=== PATIENT | female | born 1950 | race Caucasian/White ===

== ENCOUNTER → 2016-04-04 | Outpatient (CLI) | payer MEDICARE, OTHER | LOC: LAB.O 09:47 | PROVIDERS: ATTEND Nurse Practitioner Acute Care | DX: R19.7 Diarrhea, unspecified (principal) ==

== ENCOUNTER → 2016-09-07 | Outpatient (CLI) | payer MEDICARE, OTHER | LOC: GMA 20:13 | PROVIDERS: ATTEND Nurse Practitioner Family | DX: N30.00 Acute cystitis without hematuria (principal) ==

== ENCOUNTER 2017-11-20 09:36 | Inpatient (IN) | payer MEDICARE, OTHER ==
--- NOTE | 2017-11-20 09:57 | HP ---
SUPERVISING PHYSICIAN: Yovani Garcias M.D. CHIEF COMPLAINT: Increasing shortness of breath. HISTORY OF PRESENT ILLNESS: Ms. Maxwell is a 67 year-old female patient of Dr. Thao. This past Sunday she went to the mobile clinic at with complaints of a cough and some shortness of breath with upper respiratory symptoms. She was given a steroid shot and antibiotic injection, and started on some Cefdinir. She initially had some response that was improvement, but today she was worse and went to [facility] and was seen by Isamar, the physician assistant track coach in the walk-in clinic, and was given another shot of steroids, Rocephin and started on a Medrol Dosepak. Her symptoms had significantly worsened, she was having a productive cough and was having low O2 saturations of 86% on room air. She does have a significant history of chronic tobacco abuse, smoking approximately a pack a day. Labs in the clinic showed s a leukocytosis of 12,500 . Her chest x-ray indicated possible pneumonia of bilateral lower lobes. Dr. Luevano requested the patient be directly admitted to the hospital given that she had failed to respond to any significant degree to outpatient treatment measures for acute upper respiratory symptoms with bronchitis. Given that she has a long history of smoking and was having shortness of breath, the patient is now admitted to the Medical/Surgical floor for ongoing treatment of chronic obstructive pulmonary disease exacerbation with concerns for developing community-acquired pneumonia bilaterally. She was admitted in stable condition. PAST MEDICAL HISTORY: 1. Hypertension. 2. Microscopic colitis. PAST SURGICAL HISTORY: 1. Tubal ligation. 2. Bilateral cataract removal. HOME MEDICATIONS: 1. Dicyclomine 10 mg b.i.d. 2. Colestipol 1 gram b.i.d. 3. Prinivil 5 mg at bedtime. ALLERGIES: TRAMADOL. FAMILY HISTORY: Significant for heart problems in both brothers, sisters and father. She has a sister with multiple sclerosis. Mother at 74 from complications from esophageal problems. There is also note of coronary artery disease, hypertension, hyperlipidemia and carotid artery stenosis. SOCIAL HISTORY: The patient lives in [place], [place]. 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 She is a current smoker of approximately a pack a day. She denies any significant alcohol consumption and does not use illicit drugs. REVIEW OF SYSTEMS: CONSTITUTIONAL: Negative for any chills or fatigue, fever or unintentional weight gain. HEENT: Denies any sore throat, ear aches, nasal congestion. RESPIRATORY: Positive for ongoing worsening dyspnea with productive cough having previously been on antibiotics for acute bronchitis. CARDIOVASCULAR: Negative for chest pains, palpitations, syncopal episodes. GASTROINTESTINAL: Denies any constipation, diarrhea, abdominal pains. EXTREMITIES: Denies any peripheral edema, arthralgias. NEUROLOGIC: Negative for ataxia, seizures, headaches. PHYSICAL EXAMINATION: VITAL SIGNS: Temperature on admission was 98.4, pulse 82, blood pressure 158/85 , satting 89% on room air with respirations 18 to 20. Admission weight 88.9 kg. GENERAL: The patient appears to be in no acute distress, well nourished, well hydrated. She is alert. HEENT: Tympanic membranes were clear bilaterally. Oropharynx was pink and moist without any notable lesions. NECK: Supple, non-tender with full range of motion. No jugular venous distention. CHEST: Lung sounds are notable for some rales more present on the right lower lobe, but no obvious wheezing. CARDIOVASCULAR: Regular rate and rhythm without appreciable murmurs, gallops, or rubs. ABDOMEN: Soft, non-tender. Positive bowel sounds. EXTREMITIES: No clubbing, cyanosis or edema. NEUROLOGIC: She is alert and oriented times three. LABORATORY: White count on admission was 12,100, hemoglobin 12.9, hematocrit 37.2, platelet count 256,000. Differential did show a left shift. Chemistries showed normal electrolytes with potassium 4.4 with BUN 16, creatinine 0.74, calcium 9.4, lactic acid 0.8, magnesium 2.1. Liver functions showed to be within normal limits. Urinalysis was pending at time of admission. MICROBIOLOGY: Sputum culture is pending. Blood culture is pending. RADIOLOGY: Chest x-ray on admission per radiology interpretation showed bilateral lower lobe airspace opacities which could represent atelectasis and/ or pneumonia. ASSESSMENT: 1. Acute exacerbation of chronic obstructive pulmonary disease with bronchitis having failed to respond to outpatient treatment plan now with concerns for developing right lower lobe pneumonia. 2. Leukocytosis secondary to #1. 3. History of hypertension. 4. Chronic tobacco abuse/nicotine addiction in a current smoker. 5. Obesity as noted by a body mass index of 38.3. PLAN: The patient is going to be directly admitted to the Medical/Surgical floor for ongoing treatment of community acquired pneumonia with the patient having failed to respond to both antibiotics including Cefdinir, azithromycin and multiple rounds of steroids in the outpatient setting. She will be started on aggressive pulmonary hygiene with chest percussive therapy. Will start her on Levaquin for antibiotic coverage and await sputum cultures to target antibiotic therapy as appropriate. She will be on DVT prophylaxis as per protocol. Will resume her home medications once those have been updated and verified. She will be on DuoNeb breathing treatments q.i.d. and p.r.n. Albuterol. Will plan to repeat labs in the morning as well as chest x-ray. Anticipate her length of stay to be at least 2 to 3 days. Until clinically stable and able to transition to p.o. medication, will continue to monitor and treat appropriately. #[id number] [facility]
[2017-11-20] MEDS ORDERED: ONDANSETRON INJ 4 MG/2 ML VIAL IV PRN (10:31)
[2017-11-20] MEDS ORDERED: ACETAMINOPHEN 325 MG TAB PO PRN (10:31)
[2017-11-20] MEDS ORDERED: ALBUTEROL SULFATE 2.5 MG/3 ML VIAL NEB PRN (10:31)
[2017-11-20] MEDS: levoFLOXacin 750MG IV 750 MG in PREMIX BAG 1 BAG IVPB SCH (11:15)
[2017-11-20] MEDS: DICYCLOMINE HCL 20 MG TAB PO SCH ×2 (11:16→20:32)
[2017-11-20] MEDS: IV SET AND CAP CHANGE INJ INJ SCH (11:16)
[2017-11-20] MEDS: IPRATROPIUM/ALBUTEROL 3 ML VIAL INH SCH ×3 (12:45→20:50)
--- NOTE | 2017-11-20 13:31 | RAD ---
EXAM DESCRIPTION: Chest,2 Views CLINICAL HISTORY: 67 years Female, Pneumonia COMPARISON: None available. TECHNIQUE: PA and lateral radiographs of the chest were obtained. FINDINGS: Trachea is midline.The cardiomediastinal silhouette is normal in size. The pulmonary vasculature is within normal limits. Bilateral lower lobe airspace opacities could represent atelectasis and/or pneumonia.No evidence of pleural effusions.No evidence of pneumothorax. IMPRESSION: Bilateral lower lobe airspace opacities could represent atelectasis and/or pneumonia. Electronically signed by: Jana Hubbard MD 11/20/2017 1:29 PM CDT
[2017-11-20] MEDS ORDERED: COLESTIPOL HCL 1 GM TAB PO ONE (19:54)
[2017-11-20] MEDS ORDERED: OMEPRAZOLE CAP 20 MG CAP ONE (19:54)
[2017-11-20] MEDS: LISINOPRIL 5 MG TAB PO SCH (20:32)
[2017-11-20] MEDS: ENOXAPARIN SODIUM 40 MG/0.4 ML SYG SUBCU SCH (20:34)
[2017-11-20] MEDS: COLESTIPOL HCL 1 GM TAB PO SCH (22:10)
[2017-11-20] MEDS: ACETAMINOPHEN W/COD #3 TAB 1 EA TAB PO PRN (23:14)
[2017-11-21] MEDS: OMEPRAZOLE CAP 20 MG CAP PO SCH (06:06)
--- NOTE | 2017-11-21 07:08 | RAD ---
EXAM DESCRIPTION: Chest,2 Views CLINICAL HISTORY:67 years Female, Pneumonia Comparison: November 20, 2017 FINDINGS: Minimal subsegmental atelectasis at the lung bases. No focal lung consolidation. No pleural effusion. No pneumothorax. Cardiac and mediastinal silhouette is unremarkable. No acute osseous abnormality. Soft tissues are unremarkable. IMPRESSION: Minimal subsegmental atelectasis at the lung bases. No focal lung consolidation. Electronically signed by: Sam Luque MD 11/21/2017 7:06 AM CDT
[2017-11-21] MEDS: ACETAMINOPHEN W/COD #3 TAB 1 EA TAB PO PRN ×2 (07:36→15:42)
[2017-11-21] MEDS: IPRATROPIUM/ALBUTEROL 3 ML VIAL INH SCH ×4 (08:20→20:26)
[2017-11-21] MEDS: SODIUM CHLORIDE 0.9% (FLUSH) 10 ML SYG IV PRN ×3 (08:46→18:02)
[2017-11-21] MEDS: methylPREDNISolone SODIUM SUC 40 MG/ML VIAL IV SCH ×3 (08:46→18:02)
[2017-11-21] MEDS: DICYCLOMINE HCL 20 MG TAB PO SCH ×2 (08:47→21:01)
[2017-11-21] MEDS: COLESTIPOL HCL 1 GM TAB PO SCH ×2 (10:11→21:53)
--- NOTE | 2017-11-21 10:13 | PN ---
SUPERVISING PHYSICIAN: Wicho Garcias MD DATE: 11/21/17 SUBJECTIVE: The patient states she is still having some coughing episodes. She did not sleep very well last night due to the intermittent coughing. She is not complaining of any fever or chills at this time. No pain. OBJECTIVE: VITAL SIGNS: Blood pressure 119/73. Heart rate 67. Respiratory rate 18. Temperature 98.2. Oxygen saturation 97%. GENERAL: Ms. Maxwell is a 67-year-old female in no active distress at this time. NEUROLOGIC: Alert and oriented. LUNGS: Diminished bases, bilateral wheezing on expiration, scattered rhonchi. CARDIOVASCULAR: Regular rate and rhythm. Normal S1, S2. ABDOMEN: Soft, obese. Positive bowel sounds. EXTREMITIES: Pulses 2+. Capillary refill is less than 3 seconds. LABORATORY: White count 11.9, hemoglobin 11.8, hematocrit 34.8, platelet count 253. Chemistries pretty much unremarkable. Chest x-ray consistent with some atelectasis. ASSESSMENT: 1. Acute exacerbation of chronic obstructive pulmonary disease. 2. Acute bronchitis contributing to #1. 3. Hypertension. 4. Continuous nicotine dependency. 5. Obesity. PLAN: At this point, I am going to place the patient on scheduled IV corticosteroids. We will continue current antibiotics and monitor cultures. I have increased her DuoNeb to q.4h. as opposed to just q.i.d. She still has her p.r.n. treatments to be given as well. We will continue to monitor her status and hopefully she will improve over the next couple of days. #[id number] [facility]
[2017-11-21] MEDS: levoFLOXacin 750MG IV 750 MG in PREMIX BAG 1 BAG IVPB SCH (11:03)
[2017-11-21] MEDS: TEMAZEPAM 15 MG CAP PO PRN (21:00)
[2017-11-21] MEDS: LISINOPRIL 5 MG TAB PO SCH (21:00)
[2017-11-21] MEDS: ENOXAPARIN SODIUM 40 MG/0.4 ML SYG SUBCU SCH (21:01)
[2017-11-22] MEDS: methylPREDNISolone SODIUM SUC 40 MG/ML VIAL IV SCH ×4 (00:07→18:05)
[2017-11-22] MEDS: OMEPRAZOLE CAP 20 MG CAP PO SCH (06:10)
--- NOTE | 2017-11-22 06:51 | RAD ---
EXAM DESCRIPTION: Chest,1 View CLINICAL HISTORY:67 years Female, copd Comparison: November 21, 2017 FINDINGS: Minimal subsegmental atelectasis at the lung bases. No focal lung consolidation. Cardiac silhouette within normal limits. No pleural effusion or pneumothorax. Electronically signed by: Sam Luque MD 11/22/2017 6:49 AM CDT
[2017-11-22] MEDS: ACETAMINOPHEN W/COD #3 TAB 1 EA TAB PO PRN (08:27)
[2017-11-22] MEDS: DICYCLOMINE HCL 20 MG TAB PO SCH ×2 (08:28→20:28)
[2017-11-22] MEDS: FLUCONAZOLE 100 MG TAB PO SCH (08:29)
[2017-11-22] MEDS: IPRATROPIUM/ALBUTEROL 3 ML VIAL INH SCH ×4 (08:47→19:48)
--- NOTE | 2017-11-22 09:27 | PN ---
SUPERVISING PHYSICIAN: Wicho Garcias MD DATE: 11/22/17 SUBJECTIVE: The patient states she is feeling better than she did yesterday. She is still coughing, but not to the degree that she was yesterday. She states it is nonproductive. She denies any fever or chills. OBJECTIVE: VITAL SIGNS: Blood pressure 127/81. Heart rate 102. Respiratory rate 18. Temperature 97.2. Oxygen saturation 94%. GENERAL: Ms. Maxwell is a 67-year-old female in no active distress currently. NEUROLOGIC: Alert and oriented. LUNGS: Diminished in the bases. She has a little bit of a wheeze to the right base, but all the other wheezing is improved. There is scattered rhonchi. CARDIOVASCULAR: Regular rate and rhythm. Normal S1, S2. ABDOMEN: Soft. Positive bowel sounds. No tenderness to palpation. EXTREMITIES: Pulses 2+. Capillary refill is less than 3 seconds. LABORATORY: White count 12.7, hemoglobin 12.3, hematocrit 36.6, platelet count 290. Chemistries unremarkable. Chest x-ray with no evidence of consolidation. ASSESSMENT: 1. Acute exacerbation of chronic obstructive pulmonary disease. 2. Acute bronchitis contributing to #1. 3. Hypertension. 4. Continuous nicotine dependency. 5. Obesity. PLAN: At this time, am going to reduce her IV corticosteroids. Her wheeze is much improved and clinically she is improved as well. All other treatment will stay the same. I will recheck her labs tomorrow. Hopefully, she will be able to be discharged in the next 24 to 48 hours. Also, she needs to ambulate the steward today to see how she does. #[id number] [facility]
[2017-11-22] MEDS: COLESTIPOL HCL 1 GM TAB PO SCH ×2 (10:01→21:43)
[2017-11-22] MEDS: levoFLOXacin 750MG IV 750 MG in PREMIX BAG 1 BAG IVPB SCH (10:48)
[2017-11-22] MEDS: NICOTINE PATCH 14 MG TD SCH (16:01)
[2017-11-22] MEDS: ENOXAPARIN SODIUM 40 MG/0.4 ML SYG SUBCU SCH (20:28)
[2017-11-22] MEDS: LISINOPRIL 5 MG TAB PO SCH (20:28)
[2017-11-22] MEDS: TEMAZEPAM 15 MG CAP PO PRN (21:56)
[2017-11-23] MEDS: SODIUM CHLORIDE 0.9% (FLUSH) 10 ML SYG IV PRN ×3 (00:01→10:45)
[2017-11-23] MEDS: methylPREDNISolone SODIUM SUC 40 MG/ML VIAL IV SCH ×4 (06:11→17:49)
[2017-11-23] MEDS: OMEPRAZOLE CAP 20 MG CAP PO SCH (06:11)
--- NOTE | 2017-11-23 06:32 | RAD ---
EXAM DESCRIPTION: Chest,1 View CLINICAL HISTORY:67 years Female, copd Comparison: November 22, 2017 FINDINGS: Improved aeration of the lung bases. Aortic calcifications. No focal lung consolidation. No pleural effusion. No pneumothorax. Cardiac and mediastinal silhouette is unremarkable. No acute osseous abnormality. Soft tissues are unremarkable. IMPRESSION: No acute findings. No focal lung consolidation. Electronically signed by: Sam Luque MD 11/23/2017 6:30 AM CDT
[2017-11-23] MEDS: IPRATROPIUM/ALBUTEROL 3 ML VIAL INH SCH ×4 (08:23→20:15)
[2017-11-23] MEDS: NICOTINE PATCH 14 MG TD SCH (09:13)
[2017-11-23] MEDS: DICYCLOMINE HCL 20 MG TAB PO SCH ×2 (09:13→21:08)
[2017-11-23] MEDS: FLUCONAZOLE 100 MG TAB PO SCH (09:13)
[2017-11-23] MEDS: levoFLOXacin 750MG IV 750 MG in PREMIX BAG 1 BAG IVPB SCH (10:45)
[2017-11-23] MEDS: COLESTIPOL HCL 1 GM TAB PO SCH ×2 (10:45→22:00)
[2017-11-23] MEDS: BUDESONIDE NEBS 0.5 MG/2 ML VIAL NEB SCH ×2 (11:51→20:15)
[2017-11-23] MEDS: guaiFENesin ER TAB 600 MG TAB PO SCH ×2 (11:59→21:07)
[2017-11-23] MEDS: PROMETHAZINE W/CODEINE SYR 5 ML UD PO PRN ×2 (15:24→21:07)
--- NOTE | 2017-11-23 17:22 | PN ---
DATE: 11/23/17 SUPERVISING PHYSICIAN: Yovani Garcias M.D. SUBJECTIVE: The patient was titrated last night down on her steroids. This morning she says she feels much worse than she did yesterday with increasing dyspnea with any exertional effort. She notes that she is starting to have a significant amount of coughing but it is yet to be productive. She denies any fever or chills, diarrhea or abdominal pains. OBJECTIVE: VITAL SIGNS: T max temperature 97.5, pulse 107, blood pressure 114/ 70, respirations 20, satting 92% on room air. Weight is 88.8 kg. GENERAL: She is resting comfortably. Appears to be in no acute distress. CHEST: Lung sounds are diminished towards the bases with no obvious rhonchi. There is some slight wheezing heard in the right base compared to the right, but no rales or rhonchi again. HEART: Regular rate and rhythm without appreciable murmurs, gallops, or rubs. ABDOMEN: Soft, non-tender. Positive bowel sounds. EXTREMITIES: Without any clubbing, cyanosis or edema. NEUROLOGIC: She was alert and oriented times three. LABORATORY: White count is up today at 19,200 with hemoglobin 12.1, hematocrit 36.2, platelet count 296,000. Differential does show a left shift. Electrolytes are within normal limits. BUN is 20, creatinine 0.7, calcium 9.2. MICROBIOLOGY: Sputum culture is pending. Blood cultures remain negative after 3 days. RADIOLOGY: Chest x-ray per radiology interpretation of single view chest shows no acute findings. No focal lung consolidations. ASSESSMENT: 1. Acute exacerbation of chronic obstructive pulmonary disease having failed to respond to outpatient treatment plan showing a slight deterioration today after attempting titrating IV corticosteroids with continued remote concern for right lower lobe pneumonia. 2. Acute on chronic bronchitis contributing to #1 requiring aggressive corticosteroid administration and aggressive pulmonary hygiene. 3. Hypertension, stable. 4. Continuous nicotine dependency on nicotine patch. 5. Obesity, chronic. PLAN: Given that she had declined clinically with decreasing her IV corticosteroids over the last 12 hours, I will go ahead and increase those back to 40 mg every 12 hours for an additional 3 doses. Will continue with aggressive pulmonary hygiene and await final culture results to further target antibiotic therapy. Will continue to with current antibiotic coverage at this point with Levaquin. Will hopefully be able to discharge tomorrow, again after titration of IV to p.o. steroids with anticipation of discharging home. She is encouraged to ambulate in the hallway as she can tolerate. Until clinically able to transition to p.o. medication and outpatient management, will continue to monitor and treat appropriately. #[id number] [facility]
[2017-11-23] MEDS: IV SET AND CAP CHANGE INJ INJ SCH (17:49)
[2017-11-23] MEDS: ENOXAPARIN SODIUM 40 MG/0.4 ML SYG SUBCU SCH (21:07)
[2017-11-23] MEDS: LISINOPRIL 5 MG TAB PO SCH (21:07)
[2017-11-23] MEDS: TEMAZEPAM 15 MG CAP PO PRN (22:00)
[2017-11-24] MEDS: methylPREDNISolone SODIUM SUC 40 MG/ML VIAL IV SCH ×2 (00:08→06:06)
[2017-11-24] MEDS: SODIUM CHLORIDE 0.9% (FLUSH) 10 ML SYG IV PRN ×2 (00:08→06:06)
[2017-11-24] MEDS: OMEPRAZOLE CAP 20 MG CAP PO SCH (06:06)
[2017-11-24] MEDS: PROMETHAZINE W/CODEINE SYR 5 ML UD PO PRN ×4 (06:10→22:58)
[2017-11-24] MEDS: BUDESONIDE NEBS 0.5 MG/2 ML VIAL NEB SCH ×3 (08:35→18:19)
[2017-11-24] MEDS: IPRATROPIUM/ALBUTEROL 3 ML VIAL INH SCH ×4 (08:35→21:30)
[2017-11-24] MEDS: NICOTINE PATCH 14 MG TD SCH (09:03)
[2017-11-24] MEDS: FLUCONAZOLE 100 MG TAB PO SCH (09:03)
[2017-11-24] MEDS: guaiFENesin ER TAB 600 MG TAB PO SCH ×2 (09:03→21:02)
[2017-11-24] MEDS: DICYCLOMINE HCL 20 MG TAB PO SCH ×2 (09:03→21:02)
[2017-11-24] MEDS: SODIUM CHLORIDE 0.9% (FLUSH) 10 ML SYG IV SCH ×2 (09:18→21:03)
[2017-11-24] MEDS: BIFIDOBACTERIUM INFANTIS 4 MG CAP PO SCH (09:56)
[2017-11-24] MEDS: COLESTIPOL HCL 1 GM TAB PO SCH ×2 (09:57→22:00)
[2017-11-24] MEDS: NICOTINE PATCH 21 MG TD SCH (10:14)
[2017-11-24] MEDS: levoFLOXacin 750MG IV 750 MG in PREMIX BAG 1 BAG IVPB SCH (11:18)
[2017-11-24] MEDS ORDERED: BUDESONIDE NEBS 0.5 MG/2 ML VIAL NEB SCH (12:00)
--- NOTE | 2017-11-24 12:16 | PN ---
DATE: 11/24/17 SUPERVISING PHYSICIAN: Yovani Garcias M.D. SUBJECTIVE: The patient this morning says she feels a little bit better than yesterday, but continues to have a significant amount of coughing that is productive and some dyspnea with exertional efforts. She has been again on corticosteroids by IV for the last 12 hours and is transitioned to p.o. medication today. She did respond fairly well to Pulmicort. She denies any fevers, chills, diarrhea or abdominal pains. OBJECTIVE: VITAL SIGNS: T max 97.8, pulse 95, blood pressure 139/87, respirations 15, satting 93% on room air at rest. Weight is 88.6 kg. GENERAL: The patient appears to be without any acute distress. Alert. CHEST: Aeration is much better today, although still continues to be diminished bilaterally. No obvious wheezing is noted. HEART: Regular rate and rhythm. ABDOMEN: Obese but soft, non-tender. Positive bowel sounds. EXTREMITIES: Without any clubbing , cyanosis or edema. NEUROLOGIC: She is alert and oriented times three. LABORATORY: White count is persistently elevated at 19,600. Stable hemoglobin at 12 and hematocrit 35.6 with platelet count 289,000. Differential does continue to show a left shift. Chemistries today show normal electrolytes. Potassium 4.4, BUN 27, creatinine 0.76, calcium 8.8. MICROBIOLOGY: Preliminary sputum culture showed no growth at 12 hours. Preliminary blood cultures remain negative at 4 days. ASSESSMENT: 1. Acute exacerbation of chronic obstructive pulmonary disease failing to respond to outpatient treatment plan with slow response to inpatient treatment and requiring more aggressive IV corticosteroid treatments and aggressive pulmonary hygiene as well as inhaled steroids. 2. Acute on chronic bronchitis secondary to chronic tobacco abuse contributing to #1 requiring ongoing aggressive management. 3. Hypertension, stable. 4. Chronic nicotine dependency on nicotine patch. 5. Obesity. PLAN: She did respond fairly decently to Pulmicort and reinitiation of IV corticosteroids yesterday. She has had 2 doses of Pulmicort as well as 3 doses of Solu-Medrol at 40 mg. Given that she has responded well but continues to show significant exacerbation, I am going to decrease he Pulmicort timing to every 6 hours from every 12 hours as well as start her on p.o. prednisone this afternoon with anticipation of hopefully being able to discharge tomorrow. She is encouraged to ambulate at least 4 times today. Will continue aggressive pulmonary hygiene with chest percussive therapy and await final culture results to further target antibiotic therapy as needed. Until showing clinical stability and able to transition to p.o. medication, will continue to monitor and treat appropriately. #[id number] [facility]
[2017-11-24] MEDS ORDERED: predniSONE 20 MG TAB PO ONE (18:00)
[2017-11-24] MEDS: ENOXAPARIN SODIUM 40 MG/0.4 ML SYG SUBCU SCH (21:02)
[2017-11-24] MEDS: LISINOPRIL 5 MG TAB PO SCH (21:02)
[2017-11-24] MEDS: TEMAZEPAM 15 MG CAP PO PRN (22:58)
[2017-11-25] MEDS: BUDESONIDE NEBS 0.5 MG/2 ML VIAL NEB SCH ×2 (01:45→07:00)
[2017-11-25] MEDS: PROMETHAZINE W/CODEINE SYR 5 ML UD PO PRN ×2 (03:08→07:44)
[2017-11-25] MEDS: OMEPRAZOLE CAP 20 MG CAP PO SCH (06:45)
[2017-11-25] MEDS ORDERED: predniSONE 20 MG TAB ONE (06:53)
[2017-11-25] MEDS: IPRATROPIUM/ALBUTEROL 3 ML VIAL INH SCH (08:05)
[2017-11-25] MEDS: SODIUM CHLORIDE 0.9% (FLUSH) 10 ML SYG IV SCH (08:39)
[2017-11-25] MEDS: NICOTINE PATCH 21 MG TD SCH (08:40)
[2017-11-25] MEDS: BIFIDOBACTERIUM INFANTIS 4 MG CAP PO SCH (08:40)
[2017-11-25] MEDS: DICYCLOMINE HCL 20 MG TAB PO SCH (08:40)
[2017-11-25] MEDS: guaiFENesin ER TAB 600 MG TAB PO SCH (08:40)
[2017-11-25] MEDS: FLUCONAZOLE 100 MG TAB PO SCH (08:40)
[2017-11-25] MEDS ORDERED: predniSONE 20 MG TAB PO SCH (09:00)
[2017-11-25] MEDS: COLESTIPOL HCL 1 GM TAB PO SCH (10:09)
[2017-11-25 10:25] VITALS: BP 147/85; TEMP 98.5; O2SAT 95
--- NOTE | 2017-11-25 10:44 | RAD ---
EXAM DESCRIPTION: Chest,2 Views CLINICAL HISTORY: pmeumonis COMPARISON: 11/23/2017 FINDINGS: Two views of the chest are submitted. Cardiac silhouette appears normal. No focal parenchymal or pleural disease. No acute bony abnormality. There is no significant pulmonary vascular engorgement. IMPRESSION: No evidence of acute cardiopulmonary disease. Electronically signed by: Aries Hameed 11/25/2017 10:42 AM CDT
[2017-11-25] MEDS ORDERED: levoFLOXacin 500 MG TAB PO ONE (10:46)
--- NOTE | 2017-12-03 10:21 | DS ---
SUPERVISING PHYSICIAN: Wicho Garcias MD ADMISSION DIAGNOSIS: 1. Acute exacerbation of chronic obstructive pulmonary disease with bronchitis having failed to respond to outpatient treatment plan with concerns for developing right lower lobe pneumonia. 2. Leukocytosis secondary to #1. 3. History of hypertension. 4. Chronic tobacco abuse/nicotine addiction in a current smoker. 5. Obesity as noted by a body mass index of 38.3. DISCHARGE DIAGNOSIS: 1. Acute exacerbation of chronic obstructive pulmonary disease initially failing to respond to outpatient treatment measures, requiring inpatient treatment with more aggressive IV corticosteroid treatments and aggressive pulmonary hygiene as well as inhaled steroids, showing slow improvement, but clinically stable on discharge. 2. Acute on chronic bronchitis secondary to chronic tobacco abuse contributing to #1 requiring ongoing aggressive management. 3. Hypertension, stable. 4. Chronic nicotine dependency on nicotine patch. 5. Obesity. REASON FOR HOSPITALIZATION: Ms. Maxwell is a 67-year-old female patient of Dr. Luevano'betzy. The Sunday prior to admission on 11/20/17, she went to the mobile clinic at [facility] with complaints of a cough and some shortness of breath with upper respiratory symptoms. She was given a steroid shot and antibiotic injection, and started on oral antibiotics with cefdinir. She initially had good response, but on the date of admission, she was significant;y worse and went to [facility] and was seen by Isamar , the physician bankruptcy legal assistant in the walk-in clinic. At that time, she was given another shot of steroids, Rocephin and started on a Medrol Dosepak. Her symptoms had significantly worsened, she was having a productive cough and was having low O2 saturations of 86% on room air. She does have a significant history of chronic tobacco abuse, smoking approximately one pack a day. Labs in the clinic showed s a leukocytosis of 12,500 . Her chest x-ray indicated possible pneumonia of bilateral lower lobes. Dr. Luevano requested the patient be directly admitted to the hospital given that she had failed to respond to any significant degree to outpatient treatment measures for acute upper respiratory symptoms with bronchitis. She was admitted to the Medical/Surgical floor for ongoing treatment of chronic obstructive pulmonary disease exacerbation with concerns for developing community-acquired pneumonia. She was admitted in stable condition. LABORATORY: White count on admission was 12,100. At discharge, it was 21,400 with 4% bands, however, she was on extremely high dose steroids, but was clinically improving. Her hemoglobin and hematocrit were stable and at discharge were 11.7 and 35.3. Platelet count was 294,000. Differential did show a left shift at discharge, but she had been placed on a fairly high dose of steroids. Chemistries no admission showed normal electrolytes with BUN 12, creatinine 0.74. Her electrolytes remained within normal limits. BUN was slightly elevated at discharge, creatinine 0.76. Calcium normal at 8.8, magnesium low at 2.1. Lactic acid on admission was 0.8. Urinalysis showed 250 glucose, trace leukocyte esterase. Microscopic revealed 0 to 1 RBCs, 1 to 3 WBCs, 10 to 20 epithelials, 1+ bacteria, moderate mucus and 2+ budding yeast. MICROBIOLOGY: Blood cultures remain negative after 5 days. Final report on the sputum showed rare mixed normal respiratory mario. There was just a few yeast. RADIOLOGY: Chest x-ray on admission showed bilateral lower airspace opacities which could represent atelectasis and/or pneumonia. She had multiple x-rays throughout the admission and on the morning of discharge on 11/25/17, last x-ray , two-view chest per radiologic interpretation showed no evidence of acute cardiopulmonary disease. HOSPITAL COURSE: Ms. Maxwell was admitted on 11/20/17 for exacerbation of chronic obstructive pulmonary disease with concerns for developing pneumonia having failed to respond to outpatient treatment measures. She was started on antibiotics and the next day she was having significant amount of wheezing and started on steroids. She was started on a fairly high dose and tapered down to p.o. and then had a recurrence and setback of her symptoms worsening and had to be restarted on corticosteroids by IV. She received fairly high dose of steroids for several days and showed dramatic improvement although her white count was showing elevation, she was afebrile with x-ray without any signs of pneumonia. It was felt she had clinically improved well enough to continue with outpatient management. DISCHARGE ASSESSMENT: VITAL SIGNS: Temperature 98.5. Pulse 82. Blood pressure 147/85. Respiratory rate 16. Saturation 95% on room air. GENERAL: The patient was alert, in no distress. CHEST: Lungs sounds fairly clear throughout compared to admission. No wheezing was noted. Breath sounds remained diminished towards the bases, but no rhonchi or rales were present. HEART: Regular rate and rhythm. ABDOMEN: Obese, but soft. Positive bowel sounds. EXTREMITIES: No cyanosis, clubbing or edema. NEUROLOGIC: Alert and oriented times 3. PLAN: Ms. Maxwell was discharged on 11/25/17 with instructions to followup with her primary care provider in the office with Dr. Luevano the early part of next week after discharge. She was told to resume her home medications. She was encouraged to stop smoking and told to return to the hospital should she have any concerning symptoms or worsening of her condition. Diet at discharge was regular diet as tolerated. Activity to increase as tolerated. MEDICATIONS AT DISCHARGE: 1. Proventil nebulizers 2.5 mg q.4h. as needed, #30. 2. Align 4 mg daily. 3. Diflucan 150 mg daily, #2. 4. Mucinex 1200 mg twice daily. 5. Levaquin 750 mg daily, #4. 6. Nicotine patch one transdermal each day, #30. 7. Prednisone taper dose, #30, 10 mg tablets, 40 mg daily for 3 days, 30 mg for 3 days, 20 mg for 3 days and the 10 mg until gone. All other medications prior to admission were resumed. Condition at discharge was stable and improved. #[id number] [facility]
== END 2017-11-25 11:47 | disposition home or self-care (01) | DRG 190 ==
LOC: MS 09:36
PROVIDERS: ADMIT Nurse Practitioner Family; ATTEND Nurse Practitioner Family
DX: J44.1 Chronic obstructive pulmonary disease with (acute) exacerbation (principal); J18.9 Pneumonia, unspecified organism; F17.210 Nicotine dependence, cigarettes, uncomplicated; J44.0 Chronic obstructive pulmonary disease with (acute) lower respiratory infection; I10 Essential (primary) hypertension; Z88.5 Allergy status to narcotic agent; J20.9 Acute bronchitis, unspecified; E66.9 Obesity, unspecified; Z68.38 Body mass index [BMI] 38.0-38.9, adult

== ENCOUNTER 2017-12-18 11:23 | Inpatient (IN) | payer MEDICARE, OTHER ==
--- NOTE | 2017-12-18 11:24 | HP ---
SUPERVISING PHYSICIAN: Maynor Wade M.D. CHIEF COMPLAINT: Worsening shortness of breath. HISTORY OF PRESENT ILLNESS: Ms. Maxwell is a 67 year-old female with a longstanding history of chronic obstructive pulmonary disease. She had been in the hospital for exacerbation of chronic obstructive pulmonary disease on and discharged on 11/25/17, and had recovered well and was seen this past Sunday for again productive cough, increasing shortness of breath, chest congestion. At that time she was given a Z-Ze, cough medicine and steroid shot. She then reported back to the clinic for a 3 day followup on the but noticed that she was once again having increase in shortness of breath and was utilizing her inhaler at least every 1 to 2 hours. At that time, she was offered hospitalization for exacerbation of chronic obstructive pulmonary disease and refused, and had an echocardiogram done. This morning, she called Dr. Luevano and noted that she was now using her inhaler almost every hour and was significantly short of breath. Dr. Luevano requested the patient now be directly admitted for once again exacerbation of chronic obstructive pulmonary disease having failed to respond to outpatient management. She was directly admitted in stable condition. PAST MEDICAL HISTORY: 1. Chronic obstructive pulmonary disease with a recent exacerbation and hospitalizations within the last month. 2. Hypertension. 3. Microscopic colitis followed by Dr. Gray. 4. Past history of tobacco dependency having stopped smoking within the last 3 months. PAST SURGICAL HISTORY: 1. Tubal ligation. 2. Bilateral cataract removal. HOME MEDICATIONS: 1. Guaifenesin 1200 mg b.i.d. 2. Prednisone tapering dose. 3. Nicotine 21 mg patch daily. 4. Lisinopril 5 mg at bedtime. 5. Dicyclomine 10 mg twice daily. 6. Colestipol 1 gram twice daily. 7. Albuterol nebulizers 2.5 mg every 4 hours as needed. 8. Tylenol #3 one every 6 hours as needed for pain. 9. Align 4 mg daily. ALLERGIES: TRAMADOL. FAMILY HISTORY: Significant for heart problems in both brothers, sisters and father. She has had a sister with multiple sclerosis. Mother at 74 due to complications from esophageal problems. There is also note of some coronary artery disease, hypertension, hyperlipidemia and carotid artery stenosis. SOCIAL HISTORY: The patient lives in [place], [place]. She manages [employer]. She is a previous smoker having quit now in the last 2 months, previously smoking up to a pack a day. She denies any significant alcohol consumption and does not use illicit drugs. REVIEW OF SYSTEMS: CONSTITUTIONAL: Denies any fevers, chills, fatigue or unintentional weight loss. HEENT: Denies any sore throat, ear aches, nasal congestion. RESPIRATORY: As noted in History of Present Illness, worsening dyspnea with a cough that is nonproductive currently and had been previously on antibiotics within the last 30 days for acute bronchitis and COPD exacerbation as well as steroids. CARDIOVASCULAR: Denies any chest pains, palpitations, syncopal episodes. GASTROINTESTINAL: Denies any constipation, diarrhea, abdominal pains. EXTREMITIES: Denies any peripheral edema, arthralgias. NEUROLOGIC: Negative for any ataxia, seizures, headaches. PHYSICAL EXAMINATION: VITAL SIGNS: Temperature 97.8, pulse 97, blood pressure 149/89, respirations 18 , satting on room air at 95% at rest. Admission weight was 90.0 kg compared to admission on 11/20/17 at 88.9 kg. GENERAL: On admission to the Medical/Surgical floor, the patient is in some obvious mild distress with some severe shortness of breath from just mild ambulation. She does appear well hydrated, well nourished and she is alert. HEENT: Tympanic membranes are clear bilaterally. Oropharynx was pink and moist without any lesions. NECK: Supple, non-tender with full range of motion. No jugular venous distention. CHEST: Lung sounds are significantly decreased throughout with some mild inspiratory and expiratory wheezing with extended expiratory effort. CARDIOVASCULAR: Regular rate and rhythm without appreciable murmurs, gallops, or rubs. ABDOMEN: Soft, non-tender. Positive bowel sounds. EXTREMITIES: Without any clubbing, cyanosis or edema. NEUROLOGIC: She is alert and oriented times three. LABORATORY: White count 11,500, hemoglobin 12.9, hematocrit 38.2, platelet count 245,000. Differential does show a left shift. Coagulation studies show normal PT, PTT and D-dimer. Chemistries showed normal electrolytes, potassium 4.2, BUN 15, creatinine 0.7, lactic acid 1.3, magnesium 2.1. Liver functions are all within normal limits. BNP was 44. Urinalysis is pending. MICROBIOLOGY: Blood cultures are pending. Sputum culture is pending. RADIOLOGY: Chest x-ray 2 view per radiology interpretation showed no acute abnormalities in the chest. ASSESSMENT: 1. Acute exacerbation of chronic obstructive pulmonary disease with reactive airway disease and bronchitis having failed to respond to outpatient treatment management with concerns for possibly developing community acquired pneumonia requiring more aggressive antibiotic therapy and bronchial hygiene, initiation of parenteral corticosteroids. 2. Mild leukocytosis secondary to #1. 3. History of hypertension. 4. Chronic tobacco abuse plus nicotine addiction in a past smoker who recently quit smoking within the last 90 days. 5. Hypertension. 6. Chronic microscopic colitis followed by Dr. Gray. PLAN: The patient is going to be directly admitted to the Medical/Surgical floor for ongoing treatment of exacerbation of chronic obstructive pulmonary disease and failed to respond to outpatient treatment measures with concerns for community acquired developing pneumonia. She will be initiated on aggressive bronchial hygiene with IV corticosteroids, q.i.d. DuoNeb treatments. Will draw blood cultures and sputum. She will be started on steroids initially 125 mg to be followed-up by 60 mg every 6 hours and Solu-Medrol. Will plan to reevaluate in the morning with labs and chest x-ray until the patient is showing clinical improvement to discharge to outpatient management. Will continue to follow and treat as needed. #[id number] [facility]
[2017-12-18] MEDS ORDERED: ACETAMINOPHEN 325 MG TAB PO PRN (11:27)
[2017-12-18] MEDS ORDERED: ALBUTEROL SULFATE 2.5 MG/3 ML VIAL NEB PRN (11:27)
[2017-12-18] MEDS ORDERED: methylPREDNISolone SODIUM SUC 125 MG/2 ML VIAL IV ONE (11:30)
--- NOTE | 2017-12-18 11:59 | RAD ---
Procedure: XR CHEST 2 VIEWS Exam Date: 12/18/2017 Ordering Provider: Vasile Lizarraga Clinical Indication: COPD exacerbation Comparison: 11/25/2017 Findings: Cardiomediastinal silhouette is within normal limits. Aortic calcification. No focal lung consolidation. No pleural effusion. No pneumothorax. No acute osseous abnormality. Impression: 1. No acute abnormalities in the chest. Electronically signed by: Josesito Cortés MD 12/18/2017 11:58 AM CDT
[2017-12-18] MEDS: IV SET AND CAP CHANGE INJ INJ SCH (12:28)
[2017-12-18] MEDS ORDERED: ACETAMINOPHEN W/COD #3 TAB 1 EA TAB PO PRN (12:55)
[2017-12-18] MEDS: IPRATROPIUM/ALBUTEROL 3 ML VIAL INH SCH ×3 (13:15→20:05)
[2017-12-18] MEDS: NICOTINE PATCH 21 MG TD SCH (13:50)
[2017-12-18] MEDS: BIFIDOBACTERIUM INFANTIS 4 MG CAP PO SCH (13:51)
[2017-12-18] MEDS: COLESTIPOL HCL 1 GM TAB PO SCH ×2 (13:52→20:44)
[2017-12-18] MEDS: DICYCLOMINE HCL 20 MG TAB PO SCH ×2 (13:52→20:44)
[2017-12-18] MEDS: guaiFENesin ER TAB 600 MG TAB PO SCH ×2 (13:52→20:44)
[2017-12-18] MEDS ORDERED: AZITHROMYCIN IV 500 MG VIAL IVPB ONE (14:27)
[2017-12-18] MEDS ORDERED: SODIUM CHL 0.9% 50ML MIN-BAG+ 50 ML IVPB ONE (14:27)
[2017-12-18] MEDS ORDERED: cefTRIAXone SODIUM 1 GM VIAL ONE (14:27)
[2017-12-18] MEDS ORDERED: SODIUM CHLORIDE 0.9% 250ML 250 ML ONE (14:27)
[2017-12-18] MEDS: cefTRIAXone SODIUM 1 GM in SODIUM CHL 0.9% 50ML MIN-BAG+ 50 ML IVPB SCH (14:30)
[2017-12-18] MEDS: AZITHROMYCIN IV 500 MG in SODIUM CHLORIDE 0.9% 250ML 250 ML IVPB SCH (15:36)
[2017-12-18] MEDS: methylPREDNISolone SODIUM SUC 125 MG/2 ML VIAL IV SCH (19:29)
[2017-12-18] MEDS ORDERED: PANTOPRAZOLE SODIUM IV 40 MG VIAL ONE (19:34)
[2017-12-18] MEDS: BUDESONIDE NEBS 0.5 MG/2 ML VIAL NEB SCH (20:05)
[2017-12-18] MEDS: LISINOPRIL 5 MG TAB PO SCH (20:44)
[2017-12-18] MEDS: SODIUM CHLORIDE 0.9% (FLUSH) 10 ML SYG IV PRN (20:44)
[2017-12-18] MEDS: TEMAZEPAM 15 MG CAP PO PRN (21:46)
[2017-12-19] MEDS: methylPREDNISolone SODIUM SUC 125 MG/2 ML VIAL IV SCH ×2 (00:01→06:13)
[2017-12-19] MEDS: PANTOPRAZOLE SODIUM IV 40 MG VIAL IV SCH (06:20)
--- NOTE | 2017-12-19 07:15 | RAD ---
EXAM DESCRIPTION: Chest,2 Views CLINICAL HISTORY:67 years Female, Pneumonia Comparison: December 18, 2017 FINDINGS: No focal lung consolidation. No pleural effusion. No pneumothorax. Cardiac and mediastinal silhouette is unremarkable. No acute osseous abnormality. Aortic calcifications. Mild osseous degenerative changes. Soft tissues are unremarkable. IMPRESSION: No acute findings. No focal lung consolidation. Electronically signed by: Sam Luque MD 12/19/2017 7:14 AM CDT
[2017-12-19] MEDS ORDERED: SODIUM CHLORIDE 0.9% 250ML 250 ML ONE (08:24)
[2017-12-19] MEDS ORDERED: SODIUM CHL 0.9% 50ML MIN-BAG+ 50 ML IVPB ONE (08:24)
[2017-12-19] MEDS ORDERED: cefTRIAXone SODIUM 1 GM VIAL ONE (08:25)
[2017-12-19] MEDS ORDERED: AZITHROMYCIN IV 500 MG VIAL IVPB ONE (08:25)
[2017-12-19] MEDS: IPRATROPIUM/ALBUTEROL 3 ML VIAL INH SCH ×3 (08:48→16:50)
[2017-12-19] MEDS: BUDESONIDE NEBS 0.5 MG/2 ML VIAL NEB SCH ×2 (08:48→20:30)
[2017-12-19] MEDS: guaiFENesin ER TAB 600 MG TAB PO SCH ×2 (09:14→20:57)
[2017-12-19] MEDS: BIFIDOBACTERIUM INFANTIS 4 MG CAP PO SCH (09:14)
[2017-12-19] MEDS: NICOTINE PATCH 21 MG TD SCH (09:14)
[2017-12-19] MEDS: DICYCLOMINE HCL 20 MG TAB PO SCH ×2 (09:14→20:57)
[2017-12-19] MEDS: COLESTIPOL HCL 1 GM TAB PO SCH ×2 (09:15→20:57)
[2017-12-19] MEDS: methylPREDNISolone SODIUM SUC 40 MG/ML VIAL IV SCH ×2 (13:01→17:39)
[2017-12-19] MEDS: cefTRIAXone SODIUM 1 GM in SODIUM CHL 0.9% 50ML MIN-BAG+ 50 ML IVPB SCH (14:28)
[2017-12-19] MEDS: AZITHROMYCIN IV 500 MG in SODIUM CHLORIDE 0.9% 250ML 250 ML IVPB SCH (15:11)
[2017-12-19] MEDS: LEVALBUTEROL NEBS 1.25 MG/3 ML VIAL NEB SCH ×2 (17:53→20:30)
--- NOTE | 2017-12-19 18:15 | PN ---
DATE: 12/19/17 SUPERVISING PHYSICIAN: Maynor Wade M.D. SUBJECTIVE: The patient is lying in bed. Complains that she still gets quite short of breath with any exertion but does feel better today than she did yesterday and is less dyspneic today than she was yesterday. Denies chest pain , nausea, vomiting. We discussed at length that she had stopped smoking about 30 days ago and she feels like she can do it this time. She is very encouraged although she does feel fairly weak. OBJECTIVE: VITAL SIGNS: Temperature 98.5, heart rate 102, but her heart rate does go up to 118. Blood pressure 138/74, respiratory rate 20, O2 sat is 94% on room air. RESPIRATORY: Diminished breath sounds throughout but no wheezing noted. She is also tachypneic at times and she does have to speak in short phrases without getting short of breath. CARDIAC: Regular rate and rhythm, at times she is slightly tachycardic. GASTROINTESTINAL: Abdomen is soft, nondistended, non-tender. Bowel sounds are positive. EXTREMITIES: No cyanosis , clubbing or edema. NEUROLOGIC: She is awake, alert and oriented times three. LABORATORY: White count 11,800 with hemoglobin 12.2, hematocrit 37. She does have a left shift on differential. Electrolytes are basically within normal limits. Preliminary blood cultures show no growth after 24 hours. Chest x-ray shows no acute findings with no focal lung consolidation. All other labs and films have been reviewed via the EMR. ASSESSMENT: 1. Acute exacerbation of chronic obstructive pulmonary disease with reactive airway disease and bronchitis having failed to respond to outpatient treatment management with concerns for possibly developing community acquired pneumonia requiring more aggressive antibiotic therapy and bronchial hygiene with initiation of parenteral corticosteroids. 2. Mild leukocytosis secondary to #1. 3. History of hypertension. 4. Chronic tobacco abuse plus nicotine addiction in a past smoker who recently quit smoking about 30 days ago. 5. Chronic microscopic colitis followed by Dr. Gray. PLAN: We will continue present supportive care. I will wean down her corticosteroids very slowly. Tomorrow I will have her ambulate 4 times daily to increase her strength. I will also do a physical therapy consultation. She will also have an ambulation study to see if she needs oxygen at home. I encouraged good pulmonary hygiene. I will hold off on her x-ray and her electrolytes for tomorrow but I will do a CBC. Will continue to monitor closely and follow as needed. Dr. Wade is the collaborating physician available for consultation. [facility][id number] [facility]
[2017-12-19] MEDS: LISINOPRIL 5 MG TAB PO SCH (20:57)
[2017-12-19] MEDS: TEMAZEPAM 15 MG CAP PO PRN (23:13)
[2017-12-20] MEDS: methylPREDNISolone SODIUM SUC 40 MG/ML VIAL IV SCH ×4 (00:22→21:54)
[2017-12-20] MEDS: PANTOPRAZOLE SODIUM IV 40 MG VIAL IV SCH (06:05)
[2017-12-20] MEDS: BUDESONIDE NEBS 0.5 MG/2 ML VIAL NEB SCH ×2 (08:09→20:30)
[2017-12-20] MEDS: LEVALBUTEROL NEBS 1.25 MG/3 ML VIAL NEB SCH ×4 (08:09→20:30)
[2017-12-20] MEDS: DICYCLOMINE HCL 20 MG TAB PO SCH ×2 (09:20→20:34)
[2017-12-20] MEDS: COLESTIPOL HCL 1 GM TAB PO SCH ×2 (09:20→20:34)
[2017-12-20] MEDS: BIFIDOBACTERIUM INFANTIS 4 MG CAP PO SCH (09:20)
[2017-12-20] MEDS: guaiFENesin ER TAB 600 MG TAB PO SCH ×2 (09:20→20:34)
[2017-12-20] MEDS: NICOTINE PATCH 21 MG TD SCH (09:20)
[2017-12-20] MEDS ORDERED: SODIUM CHL 0.9% 50ML MIN-BAG+ 50 ML IVPB ONE (11:38)
[2017-12-20] MEDS ORDERED: cefTRIAXone SODIUM 1 GM VIAL ONE (11:39)
[2017-12-20] MEDS ORDERED: methylPREDNISolone SODIUM SUC 40 MG/ML VIAL ONE (11:39)
[2017-12-20] MEDS ORDERED: SODIUM CHLORIDE 0.9% 250ML 250 ML ONE (11:39)
[2017-12-20] MEDS ORDERED: AZITHROMYCIN IV 500 MG VIAL IVPB ONE (11:40)
[2017-12-20] MEDS: cefTRIAXone SODIUM 1 GM in SODIUM CHL 0.9% 50ML MIN-BAG+ 50 ML IVPB SCH (13:18)
--- NOTE | 2017-12-20 13:36 | PN ---
SUPERVISING PHYSICIAN: Maynor Wade M.D. DATE: 12/20/17 SUBJECTIVE: The patient is sitting on the side of her bed. She is talking to her . She feels much better. She has much less shortness of breath. She did walk to the end of the hallway and she did get somewhat out of breath, but she did not require any oxygen. She feels she is improving daily. She still has kind of a dry cough, but otherwise no complaints of chest pain, nausea , vomiting, diarrhea. OBJECTIVE: VITAL SIGNS: Afebrile. Heart rate 93. Blood pressure 147/82. Respiratory rate 20. O2 saturation 95% on room air. RESPIRATORY: Essentially clear to auscultation bilaterally, somewhat diminished at the bases. No wheezing noted. Slightly distant breath sounds in the upper lung jaramillo. She does get mildly tachypneic at times, but she can speak in longer phrases today than she did yesterday. CARDIAC: Regular rate and rhythm, at times she is slightly tachycardic. GASTROINTESTINAL: Abdomen is soft, nondistended, nontender. Bowel sounds are positive. NEUROLOGIC: She is awake, alert and oriented times three. LABORATORY: WBCs 17.4, hemoglobin 12.7, hematocrit 38.7. She still has a left shift on differential. Preliminary blood cultures show no growth after 48 hours. All other labs and films have been reviewed via the EMR. ASSESSMENT: 1. Acute exacerbation of chronic obstructive pulmonary disease with reactive airway disease and bronchitis having failed to respond to outpatient treatment management with concerns for possibly developing community acquired pneumonia requiring more aggressive antibiotic therapy and bronchial hygiene with initiation of parenteral corticosteroids. 2. Mild leukocytosis secondary to #1. 3. History of hypertension. 4. Chronic tobacco abuse plus nicotine addiction in a past smoker who recently quit smoking about 30 days ago. 5. Chronic microscopic colitis followed by Dr. Gray. PLAN: We will continue present supportive care. I have continued to wean down her corticosteroids very slowly. She has been ambulating in the steward and she is building her strength up. It would be recommended on discharge that she be sent to pulmonary rehab as she has stopped smoking a little over a month ago and I think she would benefit from going to pulmonary rehab. She may also have to go home on a slightly longer dose of low dose oral steroids and she will need close followup with Dr. Luevano. Hopefully she can be discharged in the next one to two days. We will continue to monitor closely and follow as needed. #[id number] [facility]
[2017-12-20] MEDS: AZITHROMYCIN IV 500 MG in SODIUM CHLORIDE 0.9% 250ML 250 ML IVPB SCH (14:18)
[2017-12-20] MEDS: LISINOPRIL 5 MG TAB PO SCH (20:34)
[2017-12-20] MEDS: TEMAZEPAM 15 MG CAP PO PRN (22:08)
[2017-12-21] MEDS: methylPREDNISolone SODIUM SUC 40 MG/ML VIAL IV SCH (06:10)
[2017-12-21] MEDS: PANTOPRAZOLE SODIUM IV 40 MG VIAL IV SCH (06:19)
[2017-12-21] MEDS: DICYCLOMINE HCL 20 MG TAB PO SCH ×2 (08:44→20:35)
[2017-12-21] MEDS: BIFIDOBACTERIUM INFANTIS 4 MG CAP PO SCH (08:45)
[2017-12-21] MEDS: guaiFENesin ER TAB 600 MG TAB PO SCH ×2 (08:45→20:35)
[2017-12-21] MEDS: COLESTIPOL HCL 1 GM TAB PO SCH ×2 (08:45→20:35)
[2017-12-21] MEDS: NICOTINE PATCH 21 MG TD SCH (08:45)
[2017-12-21] MEDS: BUDESONIDE NEBS 0.5 MG/2 ML VIAL NEB SCH ×2 (09:13→20:15)
[2017-12-21] MEDS: LEVALBUTEROL NEBS 1.25 MG/3 ML VIAL NEB SCH ×4 (09:14→20:15)
[2017-12-21] MEDS: IV SET AND CAP CHANGE INJ INJ SCH (13:00)
[2017-12-21] MEDS ORDERED: SODIUM CHL 0.9% 50ML MIN-BAG+ 50 ML IVPB ONE (13:03)
[2017-12-21] MEDS ORDERED: cefTRIAXone SODIUM 1 GM VIAL ONE (13:03)
[2017-12-21] MEDS ORDERED: SODIUM CHLORIDE 0.9% 250ML 250 ML ONE ×2 (13:04→14:09)
[2017-12-21] MEDS ORDERED: AZITHROMYCIN IV 500 MG VIAL IVPB ONE ×2 (13:05→14:09)
[2017-12-21] MEDS: cefTRIAXone SODIUM 1 GM in SODIUM CHL 0.9% 50ML MIN-BAG+ 50 ML IVPB SCH (13:15)
[2017-12-21] MEDS ORDERED: predniSONE 20 MG TAB PO ONE (14:00)
[2017-12-21] MEDS: SODIUM CHLORIDE 0.9% (FLUSH) 10 ML SYG IV PRN ×2 (14:23→20:35)
[2017-12-21] MEDS: AZITHROMYCIN IV 500 MG in SODIUM CHLORIDE 0.9% 250ML 250 ML IVPB SCH (14:23)
[2017-12-21] MEDS: DIPHENOXYLATE HCL/ATROPINE 2.5 MG TAB PO PRN (18:23)
--- NOTE | 2017-12-21 19:09 | PN ---
DATE: 12/21/17 SUPERVISING PHYSICIAN: Maynor Wade M.D. SUBJECTIVE: The patient notes that she is still short of breath even with rest , but has been showing some improvement and is able to tolerate slowly titrating off her IV steroids. She does remain afebrile and has a nonproductive but has no chest pains. The patient has continued to have some episodes of diarrhea but it is being controlled with Lomotil. OBJECTIVE: VITAL SIGNS: Temperature 97.5, pulse 83, blood pressure 143/80, respirations 18, satting 95% on room air. I's and O's show a negative balance of 185 with 1290 in, 1475 out. She continues to have a little diarrhea and has had 3 bowel movements today. Weight is 89.0 kg. GENERAL: The patient is resting comfortably. Appears to be in no acute distress. She is alert. CHEST : Lung sounds are diminished towards the bases. No rhonchi, but she does have continued wheezing noted in the upper lung jaramillo, more so on inspiration than expiration. HEART: Regular rate and rhythm. ABDOMEN: Obese but soft, non- tender. Positive bowel sounds. EXTREMITIES: She is alert and oriented times three. LABORATORY: No additional laboratory were completed today. MICROBIOLOGY: Blood cultures remain negative after 3 days. RADIOLOGY: No chest x-ray for review today. ASSESSMENT: 1. Acute exacerbation of chronic obstructive pulmonary disease with reactive airway component and bronchitis having failed to respond to previous outpatient treatment measures on steroids and antibiotics now requiring more aggressive antibiotic therapy and bronchial hygiene as well as initiation of parenteral corticosteroids with remote concerns of developing community acquired pneumonia with the patient slowly tapering off to p.o. medications. 2. Mild leukocytosis secondary to #1 exacerbated by corticosteroids. 3. Hypertension, stable with monitoring. 4. Chronic tobacco abuse in a past smoker who quit within the last 30 days currently utilizing nicotine patch. 5. Chronic microscopic colitis followed by Dr. Gray. PLAN: Will continue to wean her down to p.o. medications this afternoon, including her corticosteroids. Will do prednisone 40 mg and reevaluate in the morning with anticipation that we will discharge her tomorrow should she show continued improvement and stability. She will need to be sent to cardiopulmonary rehab on discharge and again is encouraged to stop smoking and continue to do so. Again, will anticipate hopefully discharging tomorrow. Until that point will continue to monitor and treat as needed. #[id number] [facility]
[2017-12-21] MEDS: LISINOPRIL 5 MG TAB PO SCH (20:35)
[2017-12-21] MEDS: TEMAZEPAM 15 MG CAP PO PRN (22:23)
[2017-12-22] MEDS: DIPHENOXYLATE HCL/ATROPINE 2.5 MG TAB PO PRN (00:12)
[2017-12-22] MEDS ORDERED: predniSONE 20 MG TAB ONE (03:35)
[2017-12-22] MEDS: PANTOPRAZOLE SODIUM IV 40 MG VIAL IV SCH (06:01)
--- NOTE | 2017-12-22 06:29 | RAD ---
EXAM DESCRIPTION: Chest,2 Views CLINICAL HISTORY:67 years Female, COPD exacerbation Comparison: December 19, 2017 FINDINGS: No focal lung consolidation. No pleural effusion. No pneumothorax. Cardiac and mediastinal silhouette is unremarkable. No acute osseous abnormality. Aortic calcifications. Soft tissues are unremarkable. IMPRESSION: No acute findings. No focal lung consolidation. Electronically signed by: Sam Luque MD 12/22/2017 6:27 AM CDT
[2017-12-22] MEDS: LEVALBUTEROL NEBS 1.25 MG/3 ML VIAL NEB SCH ×2 (08:03→12:48)
[2017-12-22] MEDS: BUDESONIDE NEBS 0.5 MG/2 ML VIAL NEB SCH (08:03)
[2017-12-22] MEDS: NICOTINE PATCH 21 MG TD SCH (08:40)
[2017-12-22] MEDS: DICYCLOMINE HCL 20 MG TAB PO SCH (08:41)
[2017-12-22] MEDS: COLESTIPOL HCL 1 GM TAB PO SCH (08:41)
[2017-12-22] MEDS: guaiFENesin ER TAB 600 MG TAB PO SCH (08:42)
[2017-12-22] MEDS: BIFIDOBACTERIUM INFANTIS 4 MG CAP PO SCH (08:42)
[2017-12-22] MEDS ORDERED: predniSONE 20 MG TAB PO SCH (09:00)
[2017-12-22 10:01] VITALS: BP 124/75; TEMP 98.1; O2SAT 98
--- NOTE | 2017-12-25 09:07 | DS ---
SUPERVISING PHYSICIAN: Maynor Wade MD ADMISSION DIAGNOSIS: 1. Acute exacerbation of chronic obstructive pulmonary disease with reactive airway disease and bronchitis having failed to respond to outpatient treatment plan with concerns for possibly developing community acquired pneumonia requiring more aggressive antibiotic therapy, bronchial hygiene and initiation of parenteral corticosteroids. 2. Mild leukocytosis secondary to #1. 3. History of hypertension. 4. Chronic tobacco abuse plus nicotine addiction in a past smoker who recently quit smoking within the last 30 days. 5. Hypertension. 6. Chronic microscopic colitis followed by Dr. Gray. DISCHARGE DIAGNOSIS: 1. Acute exacerbation of chronic obstructive pulmonary disease with reactive airway component and chronic bronchitis having failed to respond to treatment in the outpatient setting requiring aggressive steroid management, antibiotics with slow taper of steroids to discharge with continued remote concerns for community acquired pneumonia. 2. Leukocytosis secondary to #1 and exacerbated by corticosteroids. 3. Chronic tobacco abuse in a past smoker who quit within the last 30 days, currently utilizing nicotine patch. 4. Chronic microscopic colitis followed by Dr. Gray. REASON FOR HOSPITALIZATION: Ms. Maxwell is a 67 year-old female of Dr. Luevano's with a longstanding history of chronic obstructive pulmonary disease. She had been in the hospital for exacerbation of chronic obstructive pulmonary disease on 11/20/17 and discharged on 11/25/17. She had recovered well and was seen this past Sunday for again productive cough, increasing shortness of breath , chest congestion. At that time she was given a Z-Ze, cough medicine and steroid shot. She then reported back to the clinic for a 3 day followup on the 12/17/17, but noticed that she was once again having increase in shortness of breath and was utilizing her inhaler at least every 1 to 2 hours. At that time , she was offered hospitalization for exacerbation of chronic obstructive pulmonary disease and refused, and had an echocardiogram done. On the morning of admission, she called Dr. Luevano's office and noted that she was now using her inhaler almost every hour and was significantly short of breath. Dr. Luevano requested the patient be directly admitted for once again exacerbation of chronic obstructive pulmonary disease having failed to respond to outpatient management. She was directly admitted in stable condition. LABORATORY: White count on admission was 11,500. At discharge, it was 18,500. Hemoglobin and hematocrit were stable at 12.7 and 38.8 at discharge respectively with platelet count 320,000. Differential did show a left shift. Coagulation studies showed a normal PT, PT-T and D-dimer. Chemistries on admission showed normal electrolytes and at discharge as well with BUN 16, creatinine 0.64. Liver functions all within normal limits. Magnesium 2.1, lactic acid 1.3. Urinalysis showed greater than 100,000 glucose, otherwise within normal limits. MICROBIOLOGY: Blood cultures remained negative after 5 days. RADIOLOGY: Chest x-ray on admission per radiologic interpretation showed no acute abnormalities. Followup x-rays on the day of discharge per radiologic interpretation of two view chest showed no focal lung consolidations or any acute findings. HOSPITAL COURSE: MS. Maxwell was admitted as noted on 12/18/17 with severe exacerbation of chronic obstructive pulmonary disease with a reactive component. She required high dose corticosteroid initially on admission with slow taper to discharge. She was treated with antibiotics as well and showed good clinical progression and improvement although her white count has shown increasing leukocytosis with some bands on date of discharge, however, she had been on a high amount of corticosteroids, but was clinically improved as well as radiographic studies were without any evidence of pneumonia. It was felt she had progressed to the point where she could could clinically be managed in the outpatient setting on a taper of prednisone. PHYSICAL EXAMINATION: GENERAL: The patient was seen and examined prior to discharge. She was in no acute distress, resting comfortably and alert. CHEST: Lung sounds were significantly improved from prior to admission with no wheezing or rhonchi heard, just slightly diminished towards both bases. HEART: Regular rate and rhythm. ABDOMEN: Soft, nontender. Positive bowel sounds. EXTREMITIES: Without any cyanosis, clubbing or edema. NEUROLOGIC: Alert and oriented times 3. PLAN: Ms. Maxwell was discharged on 12/22/17 with instructions to followup with her primary care provider, Dr. Luevano, in 7 days. She was to start new medications as instructed and resume her home medications as directed. She was told to return to the hospital should she have any concerning symptoms. Instructions included regular diet as tolerated, increase activity as tolerated. MEDICATIONS AT DISCHARGE: 1. Cefdinir 300 mg twice daily, #12. 2. Xopenex nebulizer 1.25 mg 4 times daily as needed, #60. 3. Xopenex inhaler 1 puff 3 times daily as needed, #1 inhaler. 4. Prednisone taper dose 20 mg tablets, 60 mg x3 days, 50 mg x3 days, 40 mg x3 days, 30 mg x3 days, 20 mg x3 days and 10 mg x4 days. REFERRALS: The patient would certainly benefit from referral to pulmonary rehab at discharge. DISPOSITION: The patient is discharged to her family, . Condition on discharge was stable and improved. #[id number] [facility]
== END 2017-12-22 12:53 | disposition home or self-care (01) | DRG 192 ==
LOC: MS 11:23
PROVIDERS: ADMIT Nurse Practitioner Family; ATTEND Nurse Practitioner Family
DX: J44.1 Chronic obstructive pulmonary disease with (acute) exacerbation (principal); K52.9 Noninfective gastroenteritis and colitis, unspecified; I10 Essential (primary) hypertension; Z79.51 Long term (current) use of inhaled steroids; Z87.891 Personal history of nicotine dependence; Z88.5 Allergy status to narcotic agent

== ENCOUNTER → 2018-03-18 | Outpatient (CLI) | payer MEDICARE, OTHER ==
--- NOTE | 2018-03-18 14:01 | CT ---
EXAM DESCRIPTION: Chest w/o Contrast : Computed Tomography. CLINICAL HISTORY: 67 years Female SOB. Quit smoking 3 months ago. COMPARISON: Chest x-ray 12/22/2017. TECHNIQUE: Spiral-axial scans at 5 x 5 mm intervals through the lungs and thorax without IV contrast. 2.5 x 5 mm lung algorithm axial reconstructions. Coronal and sagittal 2.0 Mm reconstructions. No adverse reactions. Total Exam DLP: 774.01 mGy-cm. This exam was performed according to our departmental dose-optimization program which includes automated exposure control, adjustment of the mA and/or kV according to patient size and/or use of iterative reconstruction technique; to reduce radiation dose to as low as reasonably achievable (ALARA). Nodule measurements under 10 mm are given as mean value of 3 axes diameters. FINDINGS: Lungs and large airways: 5 mm partially solid nodule, with slightly lobulated margins, in the right posterior apex may be associated with the posterior pleura, lung axial series 4, image 18 and 19. 3 mm subpleural nodule on image 73 in the lateral right middle lobe. Small blebs in a centrilobular distribution in the upper lung jaramillo bilaterally. No abnormal nodule mass or focal infiltrate. Pleural spaces: Bilateral apical pleural thickening with no effusion or pneumothorax. Small bilateral scattered focal areas of pleural thickening. Mediastinum and Arlin: Evaluation limited due to lack of IV contrast. Negative. Great vessels and Heart: Evaluation limited due to lack of IV contrast.. Atherosclerotic calcification proximal brachiocephalic vessels, descending thoracic aorta, aortic arch, and coronary vessels. Soft tissues of neck base, axillae, and chest wall: Evaluation limited due to lack of IV contrast. Calcification in the mid left breast. Inhomogeneous appearance of the thyroid gland. No enlarged lymph nodes. Upper abdomen: No fluid or free air in the included peritoneal space. Normal size and density of the spleen, adrenal glands. Questionable small sliding hiatal hernia. Osseous structures: Multiple levels of thoracic disc space narrowing and spondylosis. Bilateral sternoclavicular arthrosis. Question of old trauma and fracture of the right humeral head greater tuberosity. IMPRESSION: 1. 5 mm partially solid nodule with extension to the right apical pleura may represent focal pleural thickening. Bilateral focal pleural thickening. Mild emphysematous changes in the upper lobes. No abnormal nodule or mass. No focal infiltrate. [facility] Best Practice recommendations are that no routine CT follow-up is recommended, according to 2017 Fleischner Society guidelines. Please see below*. 2. Limited evaluation of soft tissue due to lack of IV contrast, but no significantly enlarged lymph nodes or soft tissue masses are seen. 3. Solitary calcification in the left breast. Consider follow-up diagnostic bilateral digital mammography if not performed in the past year *2017 Fleischner Society Recommendations for Subsolid Lung Nodule Follow-Up based on size (average of long- and short-axis diameters). Use most suspicious nodule for followup. Single <6 mm Ground glass: No routine follow-up <6 mm Part solid: No routine follow-up Electronically signed by: Aries Hooker MD 03/18/2018 2:00 PM [facility]
== END ==
LOC: RAD 10:43
PROVIDERS: ATTEND Internal Medicine
DX: R06.02 Shortness of breath (principal); R91.1 Solitary pulmonary nodule

== ENCOUNTER 2019-03-10 06:42 | Inpatient (IN) | payer MEDICARE, OTHER ==
[2019-03-10] MEDS ORDERED: SODIUM CHLORIDE 0.9% (FLUSH) 10 ML SYG IV PRN ×2 (06:48→12:06)
[2019-03-10] MEDS ORDERED: SODIUM CHLORIDE 0.9% 1000ML 1,000 ML IVS ONE (06:58)
--- NOTE | 2019-03-10 07:04 | ED.PDOC ---
History of Present Illness - General Chief Complaint: Abdominal Pain Stated Complaint: upper abdomen pain radiating to back Time Seen by Provider: 03/10/19 06:47 Information Source: patient - History of Present Illness Initial Comments: 68 yo female with PMH of COPD who presents with cc of abdominal pain. Onset yesterday morning, persistent with worsening since onset. Located across upper abdomen and RUQ with radiation to the back, constant, unable to describe - "just a pain", 6/10 severity currently, at worst was 9/10 last night, last ate yesterday, not worse with oral intake, tried ibuprofen & Tylenol with little relief. States she has had similar pains in the past but have not lasted this long or quite this severe - feels like it may be related to her gallbladder. Denies any n/v. Reports 1 episode of pale runny stools this morning. Denies any fevers, chills, urinary sx's. Reports she just finished a course of Abx for UTI. She was also treated for possible flu with Xofluza 1 week ago in the clinic. Reports ongoing sx's of cough and occasional dyspnea from the abd pain. PCP is Dr. Luevano. Review of Systems - Review of Systems Review of Systems: 03/10/19 07:04 as per HPI All other Systems: Reviewed and Negative Past Medical History (General) - Patient Medical History Hx Seizures: No Hx Stroke: No Hx Dementia: No Hx Asthma: No Hx of COPD: Yes Hx Cardiac Disorders: No Hx Congestive Heart Failure: No Hx Pacemaker: No Hx Hypertension: Yes Hx Thyroid Disease: No Hx Diabetes: No Hx Gastroesophageal Reflux: No Hx Renal Disease: No Hx Cancer: No Hx of HIV: No Hx Hepatitis C: No Hx MRSA: No - Vaccination History Hx Tetanus, Diphtheria Vaccination: No Hx Influenza Vaccination: Yes Hx Pneumococcal Vaccination: Yes - Social History Hx Tobacco Use: Yes - quit 1 year ago Hx Alcohol Use: No Hx Substance Use: No Hx Physical Abuse: No Hx Emotional Abuse: No Family Medical History - Family History Mother Family History: No Known Physical Exam - Physical Exam General Appearance: Alert, Comfortable, No apparent distress Eyes, Ears, Nose, Throat Exam: PERRL/EOMI, normal ENT inspection, pharynx normal Neck: non-tender, full range of motion, normal inspection Respiratory: lungs clear, normal breath sounds, no respiratory distress Cardiovascular/Chest: normal peripheral pulses, regular rate, rhythm, no edema, no murmur Peripheral Pulses: No deficit Gastrointestinal/Abdominal: normal bowel sounds, soft, no organomegaly, tenderness - moderate RUQ ttp with slight guarding, mod epigastric ttp, mild suprapubic and RLQ ttp, no flank ttp Back Exam: normal inspection, no CVA tenderness, no vertebral tenderness Extremity: normal range of motion, non-tender, normal inspection, no pedal edema, no calf tenderness Neurologic: no motor/sensory deficits, alert, normal mood/affect, oriented x 3 Skin Exam: normal color, warm/dry Progress - Progress Progress: 03/10/19 07:05 Abdominal pain -appears primarily RUQ & epigastric -consider gallstones vs acute cholecystitis vs acute gastritis/GERD vs acute pancreatitis vs gastroenteritis vs UTI vs appendicitis vs other -BP elevated 180s/80s but vitals otherwise stable, afebrile, pt in NAD -check labs, UA, place PIV, 1 L NS bolus 03/10/19 08:41 -Labs reveal WBC 11,900 with 84% segs and no bands. CMP with T bili 2.8 (direct 1.8), alk phos 118, AST 316, ALT 148, glucose 170. -CXR shows no acute processes per my read -CT A/P reveals distended and inflamed gallbladder without biliary ductal dilatation or evidence of radiographic obstructing stones. Findings are c/w acute cholecystitis. Pt is also incidentally noted to have 3 mm right lower lobe pulmonary nodule. -Pt remains stable, pain much improved with Fentanyl 50 mcg IV, no complaints at this time. Discussed findings, dx of Acute cholecystitis and need for urgent surgical consultation. Awaiting call back from Dr. Alford. Blood cultures drawn. Will begin broad spectrum IV Abx with Zosyn. 03/10/19 09:38 -Spoke with Dr. Alford. He has concerns for possible CBD stone and obstruction. He has requested US abdomen for further evaluation in the ED before any disposition. Pt reports pain beginning to return - will give another dose of Fentanyl 50 mcg IV. Otherwise remains stable. 03/10/19 11:54 -US revealed stones in the gallbladder, largest approx 1.2 cm, along with gallbladder wall thickening (5 mm) but no surrounding fluid. CBD diameter 5 mm and no evidence of stones in the CBD. Dr. Alford requested MRCP in the ED but unable to get in ED. Thus he requests admission and will get MRCP to further ev aluate prior to scheduling cholecystectomy. -Spoke with Vasile Gabriel who accepts pt for admission. Nawaf Sol MD Billing #[id number] - Results/Orders Results/Orders: 03/10/19 06:48 IV Care:Saline Lock per Protoc QSHIFT Sodium Chloride 0.9% (Flush) [Saline Flush Syringe] 10 ml IV PRN PRN 03/10/19 06:58 Sodium Chloride 0.9% 1000ML [Ns 1000 ml] 1,000 ml IVS ONCE 03/10/19 07:29 Hold Metformin x 48Hrs [id number] 03/10/19 07:30 NPO per Nursing ONCE 03/10/19 07:31 BLOOD CULTURE Stat 03/10/19 08:19 Piperacillin/Tazobactam [Zosyn] 3.375 gm Sodium Chloride 0.9% 100Ml [NS (NACL 0.9%) 100ml] 100 ml IVPB ONCE 03/10/19 Lunch NPO Except Meds Laboratory Results - last 24 hr 03/10/19 03/10/19 03/10/19 07:00 07:00 07:45 WBC 11.9 H RBC 3.83 L Hgb 11.7 L Hct 35.2 L MCV 92.0 MCH 30.7 MCHC 33.4 RDW 12.3 Plt Count 281 MPV 8.6 Absolute Neuts (auto) 10.00 H Absolute Lymphs (auto) 0.80 L Absolute Monos (auto) 0.90 H Absolute Eos (auto) 0.10 Absolute Basos (auto) 0.00 Neutrophils % 84.8 H Lymphocytes % 6.8 L Monocytes % 7.5 Eosinophils % 0.5 L Basophils % 0.4 Sodium 136 Potassium 3.7 Chloride 101 Carbon Dioxide 22 Anion Gap 16.7 BUN 15 Creatinine 0.63 BUN/Creatinine Ratio 23.8 H Random Glucose 170 H Serum Osmolality 276.8 Calcium 9.0 Total Bilirubin 2.8 H* Direct Bilirubin 1.8 H Indirect Bilirubin 1.0 H AST 316 H ALT 148 H Alkaline Phosphatase 118 Serum Total Protein 7.5 Albumin 3.6 Lipase 86 H Urine Color Marifer H Urine Appearance Clear Urine pH 6.5 Ur Specific Lampe 1.020 Urine Protein Negative Urine Glucose (UA) 500 H Urine Ketones Negative Urine Blood Negative Urine Nitrite Negative Urine Bilirubin Large Urine Urobilinogen 0.2 Ur Leukocyte Esterase Negative Urine RBC 0-1 Urine WBC 1-3 Ur Epithelial Cells 5-10 Urine Bacteria Rare Urine Mucus Small Departure - Departure Clinical Impression: Acute cholecystitis due to biliary calculus Time of Disposition: 11:56 Disposition: Admit Patient Condition: Fair Departure Forms: ED Discharge - Pt. Copy, Patient Portal Self Enrollment Instructions: DI for Abdominal Pain-Adult Referrals: Ubaldo Luevano MD [Primary Care Provider] - 1-2 Weeks Home Medications: Ambulatory Orders Acetaminophen W/ Codeine [Tylenol W/ CODEINE #3] 1 ea PO Q6HRS PRN #20 07/15/15 Colestipol HCl 1 gm PO BID 11/20/17 Dicyclomine HCl 10 mg PO BID 11/20/17 Lisinopril [Prinivil] 5 mg PO BEDTIME 11/20/17 Albuterol Sulfate Nebs [Proventil Nebs] 2.5 mg NEB Q4H PRN #30 vial 11/25/17 Bifidobacterium Infantis [Align] 4 mg PO DAILY cap 11/25/17 Nicotine Patch 21 mg [Habitrol Patch 21mg] 1 ea TD DAILY #30 patch 11/25/17 [id number] ER TAB [Mucinex Tab] 1,200 mg PO BID tab 11/25/17 Cefdinir [Omnicef] 300 mg PO BID #12 cap 12/22/17 Levalbuterol Nebs [Xopenex NEBS] 1.25 mg NEB QID PRN #60 vial 12/22/17 Levalbuterol Tartrate [Xopenex Hfa] 1 puff IN TID PRN #1 inh 12/22/17 Prednisone [Deltasone] See Taper PO DAILY #24 tab 12/22/17 Decision To Admit - Decistion To Admit Decision to Admit Reason: Admit from ER Decision to Admit Date: 03/10/19 Decision to Admit Time: 11:57
[2019-03-10] MEDS ORDERED: fentaNYL CITRATE INJ 50 MCG/ML AMP IV ONE ×3 (07:28→11:36)
--- NOTE | 2019-03-10 08:02 | RAD ---
EXAM DESCRIPTION: Chest,2 Views CLINICAL HISTORY: cough, RUQ pain COMPARISON: December 22, 2017 FINDINGS: The cardiac silhouette is at the upper limits of normal size. Mediastinal contours are otherwise unremarkable. There is no airspace consolidation or pleural effusion. The lung volumes are at the upper limits of normal range. There is no pneumothorax or acute fracture. IMPRESSION: Stable borderline heart size without acute intrathoracic abnormality. Electronically signed by: Greg Weber MD 03/10/2019 8:01 AM [facility]
--- NOTE | 2019-03-10 08:13 | CT ---
EXAM DESCRIPTION: Abdomen/Pelvis w/Contrast CLINICAL HISTORY: 68 years Female, RUQ pain, bilirubin elevation COMPARISON: None. TECHNIQUE: CT of the abdomen and pelvis acquired with IV contrast material. Coronal and sagittal reformations provided. This exam was performed according to our departmental dose-optimization program, which includes automated exposure control, adjustment of the mA and/or kV according to patient size and/or use of iterative reconstruction technique. FINDINGS: Lung bases: 3 mm pleural adjacent right middle lobe pulmonary nodule on image 2. Solid Organs: Unremarkable liver, spleen, pancreas, adrenal glands, and left kidney. Cortical right renal cyst. Distended gallbladder with moderate surrounding stranding. Gallbladder measures up to 4.6 cm in maximal diameter with an overall length of 9.1 cm. Nondilated intrahepatic and extrahepatic biliary ducts. GI tract: Unremarkable stomach. No small bowel obstruction. Sigmoid diverticula without pericolonic inflammation or edema. Normal appendix. Vascular: Mild atherosclerosis. Musculoskeletal and soft tissues: No acute fracture or aggressive appearing osseous lesion. Small fat-containing umbilical hernia. Urinary bladder: Normal. Uterus and adnexa: Normal. Other: None. IMPRESSION: 1. Distended gallbladder with surrounding inflammation can be seen with acute cholecystitis. No biliary tract dilatation. 2. 3.0 mm right middle lobe solid pulmonary nodule detected on incomplete chest CT. No routine follow-up imaging is recommended. These guidelines do not apply to immunocompromised patients and patients with cancer. Follow up in patients with significant comorbidities as clinically warranted. For lung cancer screening, adhere to Lung-RADS guidelines. Reference: Radiology. 2017; 284(1):228-43. Electronically signed by: Chandler Garcia MD 03/10/2019 8:12 AM [employer]
[2019-03-10] MEDS ORDERED: PIPERACILLIN/TAZOBACTAM 3.375 GM in SODIUM CHLORIDE 0.9% 100ML 100 ML IVPB ONE (08:19)
[2019-03-10] MEDS ORDERED: SODIUM CHLORIDE 0.9% 100ML 100 ML IVPB ONE ×3 (08:24→19:12)
[2019-03-10] MEDS ORDERED: PIPERACILLIN/TAZOBACTAM 3.375 GM VIAL IVPB ONE ×3 (08:24→19:12)
--- NOTE | 2019-03-10 10:46 | US ---
EXAM DESCRIPTION: Abdomen,Limited: ULTRASOUND. CLINICAL HISTORY: acute cholecystitis COMPARISON: CT scan abdomen and pelvis and chest x-ray on this visit. TECHNIQUE: Transabdominal scanning: santos-scale mode. Doppler mode. FINDINGS: Gallbladder: Minimally distended gallbladder with multiple echogenic stones with acoustic shadowing, mobile with patient change in position. Largest stone 1.2 cm diameter. No fluid around the gallbladder. Wall thickening 5.0 mm. Non-tender with transducer pressure. Common bile duct: caliber 5.6 mm within normal limits. Liver: Heterogeneously increased echogenicity; contour liver capsule smooth where seen. No fluid around the liver. Intrahepatic biliary ducts normal caliber. Doppler hepatopedal flow and normal caliber portal vein.. Long axis right lobe 15.2 cm. Pancreas: normal size and echogenicity. Duct not seen. Proximal abdominal aorta: Not seen.. IVC: visualized and normal caliber. Right kidney: long axis measures 10.8 cm. Normal cortical Echogenicity. Well-defined anechoic 1.6 x 1.5 x 1.4 cm cyst upper pole. Normal cortical thickness. No hydronephrosis. IMPRESSION: 1. Cholelithiasis with wall thickening but no surrounding fluid and nontender with transducer pressure. This finding is discordant with CT scanning findings today. Common bile duct not distended. 2. Liver with steatosis but normal size. Pancreas unremarkable. Right kidney normal size with 1.6 cm cyst upper pole. Electronically signed by: Aries Hooker MD 03/10/2019 10:45 AM [employer]IST
--- NOTE | 2019-03-10 12:26 | HP ---
SUPERVISING PHYSICIAN: Ubaldo Luevano M.D. CHIEF COMPLAINT: Abdominal pain. HISTORY OF PRESENT ILLNESS: This is a 68 year-old female who came into the Emergency Room with pain in her upper abdomen and right upper quadrant which started pretty much yesterday morning. The pain got as bad as 9/10. She took some Ibuprofen and Tylenol with no relief. She has not had any nausea or vomiting. In the Emergency Room, she had a workup which included a CBC that showed a white count of 11.9 with a left shift of 84.8% neutrophils. Chemistry showed elevation in AST and ALT at 316 and 148 respectively. Direct bilirubin was 1.8, total bilirubin was 2.8. Lipase was 86. She had a CT scan of the abdomen and pelvis which was consistent with cholecystitis. An ultrasound as well was done which was consistent with cholecystitis. There are no ductal stones noted in either of those tests. Dr. Proras was consulted and requested an MRCP. Therefore the patient was admitted. An MRCP was ordered. At time of examination, the patient is not complaining of any significant pain as she has gotten some Fentanyl. She is not nauseated and she is alert and oriented. PAST MEDICAL HISTORY: 1. Chronic obstructive pulmonary disease. 2. Hypertension. 3. Previous tobacco abuse. PAST SURGICAL HISTORY: 1. Tubal ligation. 2. Bilateral cataract removal. HOME MEDICATIONS: Please see medication reconciliation list once it is completed in the computer. ALLERGIES: TRAMADOL. FAMILY HISTORY: Cardiac disease in brothers, sisters and father. She had a sister with multiple sclerosis. Mother at 74 from complications from her esophagus. SOCIAL HISTORY: The patient is a previous smoker, quit over a year ago. No alcohol abuse. No illicit drugs. REVIEW OF SYSTEMS: CONSTITUTIONAL: No fever or chills. No recent weight loss or weight gain. HEENT: No headaches, vision changes, ear pain, nasal congestion or throat pain. RESPIRATORY: No cough, hemoptysis or pleuritic chest pain. CARDIOVASCULAR: No chest pain, palpitations or peripheral edema. GASTROINTESTINAL: Positive for some abdominal pain. No nausea, vomiting, diarrhea or constipation. GENITOURINARY: No dysuria, frequency or flank pain. HEMATOLOGIC: No easy bruising and no transfusion reaction. NEUROLOGIC: No seizures, syncope or paresthesias. ENDOCRINE: No polydipsia, polyuria or polyphagia. No heat or cold intolerance. PHYSICAL EXAMINATION: VITAL SIGNS: Blood pressure 145/75, heart rate 93, respiratory rate 16, temperature 98.4, oxygen saturation 98%. GENERAL: Ms. Maxwell is a 68 year-old female who is in no active distress currently. NEUROLOGIC: The patient is alert and oriented. LUNGS: Clear to auscultation bilaterally. CARDIOVASCULAR: Regular rate and rhythm. Normal S1, S2. ABDOMEN: Soft. Positive bowel sounds. She does have some tenderness to palpation in the epigastric and right upper quadrant area. EXTREMITIES: Lower extremities with no significant edema. LABORATORY: Labs and films as discussed in the History of Present Illness. ASSESSMENT: 1. Acute cholecystitis. 2. History of chronic obstructive pulmonary disease without acute exacerbation. 3. Mild anemia. 4. Transaminitis, likely secondary to #1. PLAN: At this time the patient will be admitted for an MRCP. If this is negative for stones, the patient will likely undergo surgical intervention by Dr. Porras tomorrow. We will place the patient on IV fluids and empiric antibiotics. NPO status has been explained to the patient as well. We will hold off on anticoagulation due to the anticipated surgical procedure. [facility][id number] [facility]
[2019-03-10] MEDS: IV SET AND CAP CHANGE INJ INJ SCH (13:28)
[2019-03-10] MEDS: PIPERACILLIN/TAZOBACTAM 3.375 GM in SODIUM CHLORIDE 0.9% 100ML 100 ML IVPB SCH ×2 (13:28→20:39)
[2019-03-10] MEDS: LACTATED RINGERS 1,000 ML IVS PRN (13:28)
--- NOTE | 2019-03-10 13:48 | MRI ---
EXAM DESCRIPTION: Abdomen CLINICAL HISTORY: 68 years Female, MRCP COMPARISON: Ultrasound abdomen and CT abdomen earlier 03/10/2019. TECHNIQUE: MRI of the abdomen centered on the biliary tree acquired without IV contrast material. MRCP protocol used. FINDINGS: Biliary Tree: Nondilated intrahepatic biliary ducts. Common bile duct measures 3 mm mm. Dilated gallbladder and mild pericholecystic fluid. Gallbladder measures 9.4 cm in maximal length and up to 5.1 cm in diameter containing multiple tiny layering gallstones. The cystic duct is not definitively visualized. Pancreatic Ducts: Nondilated with normal junctional anatomy. Solid Organs: There is moderate edema at the ulices hepatis surrounding the central intrahepatic ducts and portal veins. There is also moderate edema surrounding the gallbladder. Edema also surrounds the proximal duodenum. Unremarkable spleen, adrenal glands, left kidney. Cortical right renal cyst. GI Tract: Unremarkable stomach and visualized bowel. Thoracic Structures: Normal visualized intrathoracic structures. Bones: No abnormal marrow signal. IMPRESSION: 1. Cholelithiasis and dilated gallbladder with moderate surrounding edema which extends into the ulices hepatis surrounding the central intrahepatic biliary ducts and portal veins, and surrounding the adjacent duodenum. Findings indicative of cholecystitis. Of note, the cystic duct is not definitively visualized in the common bile duct is normal. In the setting of fever, jaundice, and tenderness, infectious cholangitis is not excluded although there is no abnormal dilation of the intrahepatic biliary ducts. Electronically signed by: Chandler Garcia MD 03/10/2019 1:47 PM [employer]EL[employer]
[2019-03-10] MEDS: fentaNYL CITRATE INJ 50 MCG/ML AMP IV PRN ×2 (13:51→19:22)
[2019-03-10] MEDS ORDERED: DICYCLOMINE HCL 20 MG TAB ONE (21:03)
[2019-03-10] MEDS: TEMAZEPAM 15 MG CAP PO PRN (21:07)
[2019-03-10] MEDS: COLESTIPOL HCL 1 GM TAB PO SCH (21:07)
[2019-03-10] MEDS: LISINOPRIL 5 MG TAB PO SCH (21:07)
[2019-03-10] MEDS: DICYCLOMINE HCL 10 MG PO SCH (21:10)
[2019-03-11] MEDS ORDERED: PIPERACILLIN/TAZOBACTAM 3.375 GM VIAL IVPB ONE ×4 (01:56→21:05)
[2019-03-11] MEDS ORDERED: SODIUM CHLORIDE 0.9% 100ML 100 ML IVPB ONE ×4 (01:56→21:05)
[2019-03-11] MEDS: PIPERACILLIN/TAZOBACTAM 3.375 GM in SODIUM CHLORIDE 0.9% 100ML 100 ML IVPB SCH ×3 (04:22→20:39)
[2019-03-11] MEDS: COLESTIPOL HCL 1 GM TAB PO SCH ×2 (08:12→20:35)
[2019-03-11] MEDS: DICYCLOMINE HCL 10 MG PO SCH (08:13)
--- NOTE | 2019-03-11 09:36 | CONS ---
REASON FOR CONSULTATION: Cholecystitis, possible choledocholithiasis. HISTORY OF PRESENT ILLNESS: This is a 68-year-old woman who presented to the Emergency Room with right upper quadrant pain radiating to the back which was very severe and started a day ago. She has had similar symptoms going back she thinks a few years, but never this severe. She denies any nausea or vomiting, no stool changes, no fevers or chills, no known precipitating factors, no particular food aversions. PAST MEDICAL HISTORY: 1. Chronic obstructive pulmonary disease. 2. Hypertension. PAST SURGICAL HISTORY: 1. Tubal ligation. 2. Cataracts. No other abdominal surgery. SOCIAL HISTORY: The patient is a previous smoker, denies any alcohol or drugs. ALLERGIES: TRAMADOL. MEDICATIONS: See list. REVIEW OF SYSTEMS: As above. HEENT: No headache, visual changes, sore throat. RESPIRATORY: No cough or wheeze. CARDIOVASCULAR: No chest pain or palpitations. GASTROINTESTINAL: As above. GENITOURINARY: No frequency, dysuria or hematuria. EXTREMITIES: No new complaints. PHYSICAL EXAMINATION: VITAL SIGNS: Temperature 98.7. Heart rate 90. Blood pressure 116/80. Saturation 96% on room air. GENERAL: The patient is conscious, alert and well oriented, in no distress. HEENT: Normocephalic, atraumatic. Pupils equal and reactive. Sclerae anicteric. Oral mucosa is moist. NECK: Supple. No adenopathy, jugular venous distention or thyromegaly. CHEST: Clear and equal bilaterally. HEART: Regular rate and rhythm. ABDOMEN: Obese, soft. Right upper quadrant tenderness. Positive Cota's sign. No diffuse peritoneal signs. No CVA tenderness. EXTREMITIES: No cyanosis or clubbing. There is 1+ edema. LABORATORY: White count 11.9, hematocrit 35, platelet count 281. BMP is normal. Total bilirubin 2.8, direct 1.8. Normal high 0.2. AST and ALT elevated at 316 and 148. Alkaline phosphatase normal at 118. Lipase 86, high normal 51. STUDIES: Initial CT abdomen showed evidence of cholecystitis without obvious common duct stone or dilated duct and no inflammation of the pancreas. Given her elevated bilirubin and concern for possible common duct stone, ultrasound of the abdomen was done showing cholelithiasis with thickened wall, normal common duct with no evidence of common duct stone. I spoke with GI in [place] about their preference in this case with possible common duct stones and they had no preference if surgery was done first or ERCP, but did mention they like to use MRI, so MRCP was ordered so we can rule out common duct stone and keep the patient here. MRCP was done and showed cholelithiasis with dilated gallbladder, moderate surrounding edema with no evidence of choledocholithiasis. IMPRESSION: 1. Cholecystitis. 2. Pancreatitis. 3. No evidence of choledocholithiasis. 4. Elevated transaminases. PLAN: NPO, admission for laparoscopic versus open cholecystectomy with cholangiogram. The patient was consented for the procedure, all risks and benefits including possible open procedure given her history of many years of symptoms. [id number] [facility]
--- NOTE | 2019-03-11 10:47 | PCM.PROG ---
PCM Subjective - Review of Systems Events since last encounter: Feels a bit better today, just thirsty. No nausea or vomiting. Objective - Exam Vitals and I&O: Vital Signs Temp 98.9 F 03/11/19 04:00 Pulse 108 H 03/11/19 04:00 Resp 19 03/11/19 04:00 BP 137/80 03/11/19 04:00 Pulse Ox 95 03/11/19 04:00 Intake & Output 03/10/19 03/11/19 03/11/19 18:59 06:59 18:59 Intake Total 1510 250 Balance 1510 250 Weight 209 lb 207 lb 8 oz Intake: IV 1240 100 Ns 1000 ml 1,000 ml @ 500 1000 mls/hr IVS ONCE ONE Rx#: [id number] Saline Flush Syringe 3 ml 10 IV PRN PRN Rx#:[id number] Sublimaze Inj 50 mcg IV 10 ONCE ONE Rx#:[id number] Sublimaze Inj 50 mcg IV 10 ONCE ONE Rx#:[id number] Sublimaze Inj 50 mcg IV 10 Q2H PRN Rx#:[id number] Zosyn 3.375 GM In NS ( 200 100 NACL 0.9%) 100ml 100 ML @ 25 mls/hr IVPB Q8H JOSE M Rx#:[id number] Oral 270 150 Other: # Voids 1 1 Weight Measurement Method Built in [facility] General: Alert, Oriented x3, Cooperative, No acute distress HEENT: Atraumatic, PERRLA, Other - dry mucous membranes Neck: Supple, No JVD Lungs: Clear to auscultation Cardiovascular: Regular rate, Normal S1, Normal S2 Abdomen: Normal bowel sounds, Soft, Other - RUQ TTP Extremities: No edema - Results Results: Laboratory Results WBC 19.5 K/mm3 (4.8-10.8) H D 03/11/19 05:05 RBC 3.58 M/mm3 (4.20-5.40) L 03/11/19 05:05 Hgb 11.2 gm/dL (12.0-16.0) L 03/11/19 05:05 Hct 33.2 % (36.0-47.0) L 03/11/19 05:05 MCV 92.6 fl (81.0-99.0) 03/11/19 05:05 MCH 31.1 pg (27.0-31.0) H 03/11/19 05:05 MCHC 33.6 g/dL (33.0-37.0) 03/11/19 05:05 RDW 12.7 % (11.5-14.5) 03/11/19 05:05 Plt Count 241 K/mm3 (130-400) 03/11/19 05:05 MPV 8.7 fl (7.40-10.4) 03/11/19 05:05 Absolute Neuts (auto) 16.10 K/uL (1.8-6.8) H 03/11/19 05:05 Absolute Lymphs (auto) 1.60 K/uL (1.0-3.4) 03/11/19 05:05 Absolute Monos (auto) 1.70 K/uL (0.2-0.8) H 03/11/19 05:05 Absolute Eos (auto) 0.10 K/uL (0.0-0.4) 03/11/19 05:05 Absolute Basos (auto) 0.00 K/uL (0.0-0.1) 03/11/19 05:05 Neutrophils % 82.5 % (42.0-78.0) H 03/11/19 05:05 Lymphocytes % 8.0 % (20.0-50.0) L 03/11/19 05:05 Monocytes % 9.0 % (2.0-9.0) 03/11/19 05:05 Eosinophils % 0.3 % (1.0-5.0) L 03/11/19 05:05 Basophils % 0.2 % (0.0-2.0) 03/11/19 05:05 Sodium 133 mmol/L (135-145) L 03/11/19 05:05 Potassium 3.4 mmol/L (3.6-5.0) L 03/11/19 05:05 Chloride 101 mmol/L (101-111) 03/11/19 05:05 Carbon Dioxide 18 mmol/L (21-31) L 03/11/19 05:05 Anion Gap 17.4 (12-18) 03/11/19 05:05 BUN 9 mg/dL (7-18) 03/11/19 05:05 Creatinine 0.67 mg/dL (0.6-1.3) 03/11/19 05:05 BUN/Creatinine Ratio 13.4 (10-20) 03/11/19 05:05 Random Glucose 90 mg/dL (70-105) 03/11/19 05:05 Serum Osmolality 264.6 mOsm/L (275-295) L 03/11/19 05:05 Calcium 8.4 mg/dL (8.4-10.2) 03/11/19 05:05 Total Bilirubin 2.3 mg/dL (0.2-1.0) H* 03/11/19 05:05 Direct Bilirubin 1.8 mg/dL (0-0.2) H 03/10/19 07:00 Indirect Bilirubin 1.0 mg/dL (0.2-0.8) H 03/10/19 07:00 AST 111 IU/L (10-42) H D 03/11/19 05:05 ALT 103 IU/L (10-60) H D 03/11/19 05:05 Alkaline Phosphatase 105 IU/L (42-121) 03/11/19 05:05 Serum Total Protein 7.0 gm/dL (6.4-8.2) 03/11/19 05:05 Albumin 2.9 g/dl (3.2-5.5) L 03/11/19 05:05 Globulin 4.1 gm/dL (2.3-3.5) H 03/11/19 05:05 Albumin/Globulin Ratio 0.7 (1.1-1.9) L 03/11/19 05:05 Lipase 49 U/L (22-51) D 03/11/19 05:10 Total PSA Cancelled 03/10/19 08:20 Vitamin B12 Cancelled 03/10/19 08:20 Urine Color Marifer (Yellow) H 03/10/19 07:45 Urine Appearance Clear (Clear) 03/10/19 07:45 Urine pH 6.5 (4.5-7.8) 03/10/19 07:45 Ur Specific [place] 1.020 (1.005-1.030) 03/10/19 07:45 Urine Protein Negative mg/dL 03/10/19 07:45 Urine Glucose (UA) 500 mg/dL (Negative) H 03/10/19 07:45 Urine Ketones Negative mg/dL (NEGATIVE) 03/10/19 07:45 Urine Blood Negative (Negative) 03/10/19 07:45 Urine Nitrite Negative 03/10/19 07:45 Urine Bilirubin Large (NEGATIVE) 03/10/19 07:45 Urine Urobilinogen 0.2 mg/dL (0.2-1.0) 03/10/19 07:45 Ur Leukocyte Esterase Negative (Negative) 03/10/19 07:45 Urine RBC 0-1 /hpf 03/10/19 07:45 Urine WBC 1-3 /hpf 03/10/19 07:45 Ur Epithelial Cells 5-10 /hpf 03/10/19 07:45 Urine Bacteria Rare 03/10/19 07:45 Urine Mucus Small 03/10/19 07:45 Assessment/Plan - Assessment Assessment: 1. Acute cholecytitis. 2. History of COPD, no acute exacerbation. 3. Mild anemia. 4. Transaminitis, improved. - Plan for Current Visit Plan: Plan for cholecystectomy today. LFTs improved, WBC higher. Continue antibiotics. NPO status until post-op.
[2019-03-11] MEDS ORDERED: PANTOPRAZOLE SODIUM IV 40 MG VIAL IV ONE (10:48)
[2019-03-11] MEDS ORDERED: SUGAMMADEX SODIUM 200 MG/2 ML VIAL IV ONE (11:59)
[2019-03-11] MEDS ORDERED: fentaNYL CITRATE INJ 50 MCG/ML AMP ONE ×2 (12:00→13:40)
[2019-03-11] MEDS ORDERED: MIDAZOLAM INJ 2 MG/2 ML VIAL ONE (12:00)
[2019-03-11] MEDS ORDERED: DEXMEDETOMIDINE HCL 200 MCG/2 ML INJ IV ONE (12:00)
[2019-03-11] MEDS ORDERED: ROCURONIUM BROMIDE 10 MG/ML VIAL ONE (12:00)
[2019-03-11] MEDS ORDERED: KETAMINE HCL 100 MG/ML VIAL ONE (12:00)
[2019-03-11] MEDS ORDERED: BUPIVACAINE 0.5% W/EPI 30 ML VIAL INJ ONE (12:03)
[2019-03-11] MEDS ORDERED: ELECTROLYTE-A 1,000 ML IVS ONE (12:16)
[2019-03-11] MEDS ORDERED: LACTATED RINGERS 1,000 ML ONE (13:50)
[2019-03-11] MEDS ORDERED: LACTATED RINGERS 1,000 ML IVS ONE (13:56)
[2019-03-11] MEDS ORDERED: SODIUM CHLORIDE 0.9% 50 ML VIAL INJ ONE (14:00)
[2019-03-11] MEDS ORDERED: MAGNESIUM SULFATE INJ 1 GM/2 ML VIAL IVPB ONE (14:00)
[2019-03-11] MEDS ORDERED: DEXAMETHASONE INJ 10 MG/ML VIAL IV ONE (14:00)
[2019-03-11] MEDS ORDERED: LIDOCAINE 1% 10 ML VIAL INJ ONE (14:00)
[2019-03-11] MEDS ORDERED: PROPOFOL 200 MG/20 ML VIAL IV ONE (14:00)
[2019-03-11] MEDS ORDERED: ePHEDrine SULF 50 MG/ML IV ONE (14:00)
--- NOTE | 2019-03-11 14:57 | OP ---
DATE OF PROCEDURE: 03/11/19 PREOPERATIVE DIAGNOSIS: 1. Cholecystitis. POSTOPERATIVE DIAGNOSIS: 1. Cholecystitis. PROCEDURE: 1. Laparoscopic cholecystectomy with intraoperative cholangiogram, difficult case, Modifier 21 for extreme inflammation. SURGEON: Maynor Porras MD. ANESTHESIA: General and local. FINDINGS: The gallbladder initially was not visualized due to the inflammation of the transverse colon and omentum to it. Ultimately, the cystic duct was identified and enlarged with stones in it. Cholangiogram revealed normal anatomy throughout without evidence of common duct stone or obstruction. COMPLICATIONS: None. ESTIMATED BLOOD LOSS: Less than 20 mL. SPECIMEN: Gallbladder and stones. PLAN: Admit. INDICATION: As stated. PROCEDURE: General anesthesia was induced. The patient was prepped and draped in sterile fashion. Marcaine 0.5% with epinephrine was used at all incision sites. While maintaining upward traction, a isha was made near the base of the umbilicus. Veress needle was introduced. There was free flow of fluid into the peritoneal cavity which was insufflated to an appropriate level with CO2 gas. The 5 mm trocar was placed followed by the camera. There was no evidence of bleeding or bowel injury. The patient was positioned and subxiphoid and lateral ports were placed. The gallbladder was not visualized. We elevated the liver, but due to chronic scarring and inflammation of the omentum and transverse colon, these tissues were stuck on it. We carefully began dissecting layer by layer, ultimately identifying the top of the gallbladder. Once we had enough exposed, I was able to decompress the gallbladder with suction directly into it and then grasp it and retract it. Now that it was retracted, we were able to continue to take down the inflammatory plane. There was no evidence of fistulization to the colon. It came down easily without damage to it. We got down to the infundibulum and there was no dense attachment to the duodenum. The infundibulum was then grasped. We were able to get around the cystic duct. There was a small artery that was clipped to keep out of the way. Minimal oozing at this time. A ductotomy was performed. Some stones were milked out of the distal cystic duct. The cholangiocatheter was then introduced. The cholangiogram revealed the above normal findings. The catheter was removed. Three clips were placed on the distal duct even though we had put an Endoloop on it later, the duct was ligated. Our clips did not go completely across. The cystic artery was then dissected out and triply ligated. We were then able to successfully get the gallbladder off the fossa without much difficulty and placed it in the EndoCatch bag and removed it. The fossa was examined. Under low pressure, it remained hemostatic. The clips were intact. There was no bleeding or bile leak. At this time, we put the 0 Vicryl Endoloop in and ligated on the bas of the cystic duct underneath the clips. Everything looked good at this point. All the stones had been retrieved. The subxiphoid fascia was then closed with 0 Vicryl using the suture passer. It was airtight and non- bleeding. The remaining trocars were removed. There was no bleeding from the trocar sites. The wounds were irrigated and closed with Monocryl. Dressings were applied. The patient was awakened and taken to Recovery in stable condition to be admitted. #[id number] [facility]
[2019-03-11] MEDS: HYDROcodone 5MG/APAP 325MG 1 EA TAB PO PRN (15:33)
[2019-03-11] MEDS: MORPHINE SULFATE INJ 10 MG/ML VIAL IV PRN (19:17)
[2019-03-11] MEDS: LACTATED RINGERS 1,000 ML IVS PRN (19:20)
[2019-03-11] MEDS: DICYCLOMINE HCL 20 MG TAB PO SCH (20:35)
[2019-03-11] MEDS: LISINOPRIL 5 MG TAB PO SCH (20:36)
[2019-03-11] MEDS: TEMAZEPAM 15 MG CAP PO PRN (22:16)
[2019-03-12] MEDS: PIPERACILLIN/TAZOBACTAM 3.375 GM in SODIUM CHLORIDE 0.9% 100ML 100 ML IVPB SCH ×3 (04:19→20:37)
[2019-03-12] MEDS: HYDROcodone 5MG/APAP 325MG 1 EA TAB PO PRN ×4 (04:22→21:35)
--- NOTE | 2019-03-12 07:51 | RAD ---
EXAM DESCRIPTION: 2 intraoperative radiographs intraoperative cholangiogram CLINICAL HISTORY: Cholecystectomy. Intraoperative cholangiogram FINDINGS/ IMPRESSION: No filling defect of the opacified bile duct. Short segment mild luminal narrowing of the bile duct in the ulices hepatis region. Normal tapering distally. Fluoroscopy time 21.2 seconds Electronically signed by: Ubaldo Valdez MD 03/12/2019 7:49 AM [employer]
[2019-03-12] MEDS: DICYCLOMINE HCL 20 MG TAB PO SCH ×2 (08:23→20:38)
[2019-03-12] MEDS: COLESTIPOL HCL 1 GM TAB PO SCH ×2 (08:23→20:38)
[2019-03-12] MEDS: MORPHINE SULFATE INJ 10 MG/ML VIAL IV PRN (11:02)
[2019-03-12] MEDS ORDERED: PIPERACILLIN/TAZOBACTAM 3.375 GM VIAL IVPB ONE ×2 (12:36→20:08)
[2019-03-12] MEDS ORDERED: SODIUM CHLORIDE 0.9% 100ML 100 ML IVPB ONE ×2 (12:36→20:09)
--- NOTE | 2019-03-12 14:04 | PN ---
SUPERVISING PHYSICIAN: Ubaldo Luevano MD DATE: 03/12/19 SUBJECTIVE: The patient is sitting up in bed. She has no complaints of nausea, vomiting, diarrhea or constipation. She has not had a bowel movement since surgery. She also has not been up moving much. She has not felt like it, but she is going to get up this afternoon. OBJECTIVE: VITAL SIGNS: Temperature 97.4. Heart rate 82. Blood pressure 128/76. Respiratory rate 18. O2 saturation 96% on room air. RESPIRATORY: Essentially clear to auscultation bilaterally. CARDIAC: Regular rate and rhythm. GASTROINTESTINAL: Abdomen is soft, nondistended. It is diffusely tender, especially in the epigastric and right upper quadrant. Bowel sounds are very hypoactive. She does have several band-aid dressings on her abdomen that are dry and intact. NEUROLOGIC: Awake, alert and oriented times three. LABORATORY: WBCs 17,500, hemoglobin 10.4, hematocrit 31.3. She has a left shift on her differential. Electrolytes are basically within normal limits. Glucose 133, bilirubin 0.8, AST 63, ALT 70. Preliminary blood cultures show no growth after 48 hours. All other labs and films have been reviewed via the EMR. ASSESSMENT: 1. Acute cholecystitis status post laparoscopic cholecystectomy, postoperative Day #1. 2. History of chronic obstructive pulmonary disease without an acute exacerbation. 3. Mild anemia. 4. Transaminitis, improved. PLAN: We will continue present supportive care. Operative issues will be per Dr. Maynor Porras, general surgeon. With her elevated white count as well as hypoactive bowel sounds and her difficult surgical procedure, we will keep her another night. I will defer to Dr. Porras on discharge planning. I encouraged her to get up and walk in the hallways and to continue with good pulmonary hygiene. We will continue to monitor the patient closely and follow as needed. [facility][id number] [facility]
[2019-03-12] MEDS: LISINOPRIL 5 MG TAB PO SCH (20:38)
[2019-03-12] MEDS: TEMAZEPAM 15 MG CAP PO PRN (21:28)
[2019-03-13] MEDS ORDERED: PIPERACILLIN/TAZOBACTAM 3.375 GM VIAL IVPB ONE ×2 (03:02→12:44)
[2019-03-13] MEDS ORDERED: SODIUM CHLORIDE 0.9% 100ML 100 ML IVPB ONE ×2 (03:02→12:45)
[2019-03-13] MEDS: PIPERACILLIN/TAZOBACTAM 3.375 GM in SODIUM CHLORIDE 0.9% 100ML 100 ML IVPB SCH ×2 (04:50→12:56)
[2019-03-13] MEDS: DICYCLOMINE HCL 20 MG TAB PO SCH (10:07)
[2019-03-13] MEDS: COLESTIPOL HCL 1 GM TAB PO SCH (10:07)
[2019-03-13 10:56] VITALS: O2SAT 95
[2019-03-13] MEDS ORDERED: ACETAMINOPHEN 325 MG TAB PO PRN (13:22)
[2019-03-13 14:11] VITALS: BP 129/74; TEMP 98.4
[2019-03-13] MEDS: IV SET AND CAP CHANGE INJ INJ SCH (14:44)
--- NOTE | 2019-03-14 08:35 | DS ---
SUPERVISING PHYSICIAN: Ubaldo Luevano MD DISCHARGE DIAGNOSIS: 1. Acute cholecystitis status post laparoscopic cholecystectomy, postoperative day #2. 2. History of chronic obstructive pulmonary disease without an acute exacerbation. 3. Mild anemia. 4. Transaminitis, improved. HISTORY OF PRESENT ILLNESS: This is a 68 year-old female patient who came into the Emergency Room with pain in her upper epigastric and right upper quadrant of the abdomen that started the day prior to admission. The pain significantly worsened. She took some Ibuprofen and Tylenol with no relief. There was no nausea or vomiting. In the Emergency Room, she had a workup which included a CBC that showed a white count of 11.9 with a left shift of 84.8% neutrophils. Chemistry showed elevation in AST and ALT at 316 and 148 respectively. Direct bilirubin was 1.8, total bilirubin was 2.8. Lipase was 86. She had a CT scan of the abdomen and pelvis which was consistent with cholecystitis. An ultrasound as well was done which was consistent with cholecystitis. There are no ductal stones noted in either of those tests. Dr. Porras was consulted and requested an MRCP. Therefore the patient was admitted to the hospital. HOSPITAL COURSE: The patient was initially placed in observation and given fentanyl for pain. She was also given IV fluids as well as started on Zosyn. She was placed on bowel rest as well as being NPO for surgery. Dr. Maynor Porras, general surgeon, was consulted and he had concerns for possible common duct stones. An MRCP was ordered. Plan was for laparoscopic cholecystectomy. The day after admission, she was taken to surgery and had a laparoscopic cholecystectomy with intraoperative cholangiogram. It was a somewhat difficult case and the patient was admitted postoperatively for close observation due to the difficulty of her operative procedure as well as her elevated WBC. Her status was changed to inpatient. The first day postoperatively, her bowel sounds were decreased, but she only had one bout of nausea. Her diet was slowly advanced. Today, her bowel sounds are positive. She has been walking around on the Floor and she will be discharged home in stable condition. LABORATORY: WBCs on admission were 11,900 and went as high as 19,500 and yesterday were 17,500. Her hemoglobin and hematocrit remained stable and were 10.4 and 31.3. Her electrolytes remained basically stable. Initial total bilirubin was 2.8 and yesterday was 0.8. AST was 316 and yesterday was 63. ALT 148 and yesterday was 70. Lipase on admission was 86 and yesterday it was 31. Urinalysis was basically unremarkable. Preliminary blood cultures showed no growth after 3 days. DISCHARGE PLAN: The patient will be discharged home in stable condition. She is to resume her previous diet and advance her diet as tolerated. She is also to increase her activity as tolerated. She is to followup with her primary care physician on 03/27/19 at 9 AM and she is to see Dr. Maynor Porras on 03/26/19 at 2 PM. In addition to her routine medications, she was also sent home with Tylenol with codeine #3. She is to call Dr. Luevano's office or Dr. Porras's office for any problems or complications or return to the Emergency Room if needed. DISCHARGE MEDICATIONS: 1. Lisinopril. 2. Colestipol. 3. Dicyclomine. 4. Acetaminophen with codeine. #[id number] [facility]
== END 2019-03-13 16:59 | disposition home or self-care (01) | DRG 418 ==
LOC: ER 06:42 → MS 12:24 → OBSVTOIN 03-12 14:23
PROVIDERS: ADMIT Nurse Practitioner; ATTEND Nurse Practitioner Acute Care
PROC: BF13YZZ Fluoroscopy of Gallbladder and Bile Ducts using Other Contrast (ICD-10-PCS; 2019-03-11)
PROC: 0FT44ZZ Resection of Gallbladder, Percutaneous Endoscopic Approach (ICD-10-PCS; principal; 2019-03-11 12:19)
DX: K80.00 Calculus of gallbladder with acute cholecystitis without obstruction (principal); J44.1 Chronic obstructive pulmonary disease with (acute) exacerbation; D64.9 Anemia, unspecified; I10 Essential (primary) hypertension; Z87.891 Personal history of nicotine dependence

== ENCOUNTER → 2019-10-10 | Outpatient (CLI) | payer MEDICARE, OTHER | LOC: GMAM 12:07 | PROVIDERS: ATTEND Family Medicine | DX: D64.9 Anemia, unspecified (principal); I10 Essential (primary) hypertension; E78.2 Mixed hyperlipidemia; R73.9 Hyperglycemia, unspecified ==

== ENCOUNTER → 2019-11-12 | Outpatient (CLI) | payer MEDICARE, OTHER ==
--- NOTE | 2019-11-13 18:40 | US ---
EXAM DESCRIPTION: Breast,Bilateral: Ultrasound. CLINICAL HISTORY: 69 yearsFemaleABNORMAL MAMMO architectural distortion anterior right breast. Unusual orientation of soft tissue left breast. COMPARISON: Bilateral screening digital breast tomosynthesis October 19. TECHNIQUE: Transcutaneous scanning of the bilateral breast utilizing santos-scale and Doppler modes. Scanning performed by the business editor ; observation by Dr. Hooker. FINDINGS: Right breast 3 cm from the nipple at 8:00. Mostly fatty tissues with minimal fibroglandular elements. No dominant solid mass, no distinct cyst, no fluid collection, no large calcifications. No overlying skin changes. Left breast: 7 cm from the nipple at 5:00. Mostly fatty tissue with minimal fibroglandular elements. Small cysts are noted less than 5 mm in diameter. Hypoechoic mass circumscribed with wider than tall orientation and no posterior acoustic features. No dominant solid mass, no fluid collection, and no large calcifications. IMPRESSION: Benign exam. BIRAD CATEGORY: 2 BENIGN FINDINGS. RECOMMENDATIONS: FOLLOW UP: Return to routine digital bilateral mammographic screening, one year interval from October 2019. Written communication explaining the IMPRESSION and follow-up, will be mailed to the patient and referring health care provider. The FINDINGS and the FOLLOW-UP plan were reviewed in person with the patient after the examination. According to the [employer], yearly mammograms are recommended starting at age 40 and continuing as long as a woman is in good health. Any breast change noted on a breast self-exam should be reported promptly to the patient's healthcare provider. Breast MRI is recommended for women with an approximately 20-25% or greater lifetime risk of breast cancer, including women with a strong family history of breast or ovarian cancer and women who have been treated for Hodgkin's disease. A negative mammographic report should not delay tissue diagnosis in patients with significant clinical history or physical findings. Extremely dense breast tissue limits the sensitivity of digital mammography. Electronically signed by: Aries Hooker MD 11/13/2019 6:38 PM CDT
== END ==
LOC: MAMMO 08:59
PROVIDERS: ATTEND Family Medicine
DX: R92.2 Inconclusive mammogram (principal)
CPT/HCPCS: 76641; 77066; G0279